=== PATIENT | female | born 1985 | race Caucasian/White ===

== ENCOUNTER 2017-07-10 06:54 | Observation (INO) | payer MEDICAID ==
[2017-07-10] MEDS ORDERED: Misoprostol 50 MCG (1/2 of 100 MCG) Tab VAG ONE ×2 (08:02→12:21)
[2017-07-10] MEDS ORDERED: Lactated Ringers 1,000 ML IV SCH (08:15)
[2017-07-10] MEDS ORDERED: Acetaminophen 325 MG Tab PO PRN (08:17)
[2017-07-10] MEDS ORDERED: Ondansetron 4 MG Tab.DIS PO PRN (08:17)
[2017-07-10] MEDS ORDERED: fentaNYL 100 MCG/2 ML SDV IVPUSH PRN (08:17)
[2017-07-10] MEDS ORDERED: Sodium Chloride 0.9% 10 ML Syringe FLUSH PRN (08:17)
--- NOTE | 2017-07-10 08:30 | PCM.LDHP ---
L&D History of Present Illness - General Date of Service: 07/10/17 (induction post dates) Admit Problem/Dx: Patient Status Order with Admit Dx/Problem 07/10/17 08:17 Patient Status [ADT] Routine Admission Diagnosis/Problem Admission Diagnosis/Problem and not yet delivered Source of Information: Patient History Limitations: Reports: No Limitations - History of Present Illness Introduction:: This 32 year old who is 41 1/7 weeks presents for induction of labor. Patient is a Suboxone patient. Labs: ABO A neg, Had rhogam at 29 weeks' HIV neg GBS neg Rubella immune - Related Data Allergies/Adverse Reactions: Allergies Allergy/AdvReac Type Severity Reaction Status Date / Time No Known Allergies Allergy Verified 06/30/13 10:25 Home Medications: Home Meds Albuterol [IJD: Albuterol HFA] 2 puff INH QID PRN 07/10/17 [History] Buprenorphine [Subutex] 12 mg SL BID 07/10/17 [History] Docosahexanoic Acid [ Dha] 200 mg PO BEDTIME 07/10/17 [History] Docusate Sodium [Colace] 100 mg PO BID 07/10/17 [History] OLANZapine [ZyPREXA] 10 mg PO BEDTIME 07/10/17 [History] traZODone HCl [Trazodone HCl] 50 mg PO BEDTIME 07/10/17 [History] Past Medical History HEENT History: Reports: Impaired Vision Respiratory History: Reports: Asthma [employer] History: Reports: : 1 Para: 0 LMP (Approximate): (LEROY 07/02/17) Neurological History: Reports: Seizure - Past Surgical History HEENT Surgical History: Reports: Oral Surgery GI Surgical History: Reports: Cholecystectomy Social & Family History - Family History Endocrine/Metabolic: Reports: Diabetes, type II Other Endocrine/Metabolic Family History: father - Tobacco Use Smoking Status *Q: Current Every Day Smoker Years of Tobacco use: 20 Packs/Tins Daily: 0.5 - Caffeine Use Caffeine Use: Reports: Coffee, Tea Other Caffeine Use: 4 per day - Alcohol Use Days Per Week of Alcohol Use: 0 - Recreational Drug Use Recreational Drug Use: Yes Drug Use in Last 12 Months: Yes Recreational Drug Type: Reports: Other (see below) Other Recreational Drug Type: methadone prepregancy. Now takes suboxone H&P Review of Systems - Review of Systems: Review Of Systems: See Below General: Reports: No Symptoms HEENT: Reports: No Symptoms Pulmonary: Reports: No Symptoms Cardiovascular: Reports: No Symptoms Gastrointestinal: Reports: No Symptoms Genitourinary: Reports: No Symptoms Musculoskeletal: Reports: No Symptoms Skin: Reports: No Symptoms Psychiatric: Reports: No Symptoms Neurological: Reports: No Symptoms Hematologic/Lymphatic: Reports: No Symptoms Immunologic: Reports: No Symptoms L&D Exam - Exam Exam: See Below - Vital Signs Weight: 220 lb - OB Specific Contraction Intensity: Mild Movement: Active Heart Tones: Present Heart Tones per Min: 140 Heart Rate (FHR) Variability: Minimal (0-5 bpm) Presentation: Vertex Estimated Weight: 5-6 pounds - Prince Score Prince Score Cervix Position: Midposition Prince Score Consistency: Soft Prince Score Effacement: 31-50% Prince Score Dilation: Closed Prince Score 's Station: -1 ,0 Prince Score Total: 6 - Exam General: Alert, Oriented HEENT: PERRLA, Conjunctiva Clear, EACs Clear, EOMI, Hearing Intact, Mucosa Moist & [place], Nares Patent, Normal Nasal Septum, Posterior Pharynx Clear, TMs Clear Neck: Supple, Trachea Midline Lungs: Clear to Auscultation, Normal Respiratory Effort Cardiovascular: Regular Rate, Regular Rhythm GI/Abdominal Exam: Normal Bowel Sounds, Soft, Non-Tender, No Organomegaly, No Distention, No Abnormal Bruit, No Mass, Pelvis Stable Rectal Exam: Normal Exam, Normal Rectal Tone Genitourinary: Normal external exam, Normal bimanual exam, Normal speculum exam Back Exam: Normal Inspection, Full Range of Motion Extremities: Normal Inspection, Normal Range of Motion, Non-Tender, No Pedal Edema, Normal Capillary Refill Skin: Warm, Dry, Intact Neurological: Cranial Nerves Intact, Reflexes Equal Bilateral Psychiatric: Alert, Normal Affect, Normal Mood - Patient Data Lab Results Last 24 hrs: Laboratory Results - last 24 hr 07/10/17 07/10/17 07/10/17 Range/Units 07:04 07:04 07:27 WBC 10.5 (4.5-11.0) K/uL RBC 4.35 (3.30-5.50) M/uL Hgb 13.7 (12.0-15.0) g/dL Hct 39.0 (36.0-48.0) % MCV 90 (80-98) fL MCH 32 H (27-31) pg MCHC 35 (32-36) % Plt Count 146 L (150-400) K/uL Neut % (Auto) 76 H (36-66) % Lymph % (Auto) 18 L (24-44) % Burke % (Auto) 5 (2-6) % Eos % (Auto) 1 L (2-4) % Baso % (Auto) 0 (0-1) % Urine Color Yellow Urine Appearance Cloudy Urine pH 5.0 (4.5-8.0) Ur Specific Kathleen 1.025 (1.008-1.030) Urine Protein Trace (NEGATIVE) mg/dL Urine Glucose (UA) 1000 H (NEGATIVE) mg/dL Urine Ketones 15 H (NEGATIVE) mg/dL Urine Occult Blood Negative (NEGATIVE) Urine Nitrite Negative (NEGATIVE) Urine Bilirubin Small (NEGATIVE) Urine Urobilinogen 1 (NORMAL) mg/dL Ur Leukocyte Esterase Negative (NEGATIVE) Urine RBC 0-5 (0-5) Urine WBC 5-10 H (0-5) Ur Epithelial Cells Many Amorphous Sediment Not seen Urine Bacteria Many Urine Mucus Moderate Urine Opiates Screen Negative (NEGATIVE) Ur Oxycodone Screen Negative (NEGATIVE) Urine Methadone Screen Negative (NEGATIVE) Ur Propoxyphene Screen Negative (NEGATIVE) Ur Barbiturates Screen Negative (NEGATIVE) Ur Tricyclics Screen Negative (NEGATIVE) Ur Phencyclidine Scrn Negative (NEGATIVE) Ur Amphetamine Screen Negative (NEGATIVE) U Methamphetamines Scrn Negative (NEGATIVE) Urine MDMA Screen Negative (NEGATIVE) U Benzodiazepines Scrn Negative (NEGATIVE) U Cocaine Metab Screen Negative (NEGATIVE) U Marijuana (THC) Screen Negative (NEGATIVE) Result Diagrams: 07/10/17 07:04 - Problem List (1) Amphetamine dependence, in remission SNOMED Code(s): 811212071 ICD Code: F15.21 - OTHER STIMULANT DEPENDENCE, IN REMISSION Status: Acute Current Visit: Yes (2) Elective induction of labor planned SNOMED Code(s): 323648794 ICD Code: PVP9468 - Status: Acute Current Visit: Yes (3) SNOMED Code(s): 65091237 ICD Code: Z34.90 - ENCNTR FOR SUPRVSN OF NORMAL , UNSP, UNSP TRIMESTER Status: Acute Current Visit: Yes Qualifiers: Weeks of gestation: 41 weeks Qualified Code(s): Z3A.41 - 41 weeks gestation of Problem List Initiated/Reviewed/Updated: Yes Orders Last 24hrs: Active Orders 24 hr Category Date Time Status Patient Status [ADT] Routine ADT 07/10/17 08:17 Ordered Antiembolic Devices [RC] .Routine Care 07/10/17 08:20 Ordered Communication Order [RC] ASDIRECTED Care 07/10/17 08:17 Ordered Heart Tones [RC] PER UNIT ROUTINE Care 07/10/17 08:17 Ordered Notify Provider Vital Signs [RC] PRN Care 07/10/17 08:17 Ordered Notify Provider [RC] PRN Care 07/10/17 08:17 Ordered Up ad Nabila [RC] ASDIRECTED Care 07/10/17 08:17 Ordered VTE/DVT Education [RC] Click to Edit Care 07/10/17 08:20 Ordered Vital Signs [RC] PER UNIT ROUTINE Care 07/10/17 08:17 Ordered Clear Liquid Diet [DIET] Diet 07/10/17 Lunch Ordered Acetaminophen [Tylenol] Med 07/10/17 08:17 Ordered 650 mg PO Q4H PRN Lactated Ringers [Ringers, Lactated] 1,000 ml Med 07/10/17 08:15 Active IV ASDIRECTED Ondansetron [Zofran ODT] Med 07/10/17 08:17 Ordered 4 mg PO Q4H PRN Oxytocin/Normal Saline [Pitocin in NS 20 Units/1,000 ML Med 07/10/17 08:22 Ordered ] 20 unit in 1,000 ml IV ONETIME Sodium Chloride 0.9% [Saline Flush] Med 07/10/17 08:17 Ordered 10 ml FLUSH ASDIRECTED PRN fentaNYL [Sublimaze] Med 07/10/17 08:17 Ordered 100 mcg IVPUSH Q1H PRN DVT/VTE Prophylaxis Reflex [OM.PC] Routine Oth 07/10/17 08:17 Ordered Saline Lock Insert [OM.PC] Routine Oth 07/10/17 08:17 Ordered Resuscitation Status Routine Resus Stat 07/10/17 08:17 Ordered Medication Orders Acetaminophen (Tylenol) 650 mg PO Q4H PRN PRN Reason: Pain (Mild 1-3) and fever Fentanyl (Sublimaze) 100 mcg IVPUSH Q1H PRN PRN Reason: Pain (moderate 4-6) Lactated Ringer's (Ringers, Lactated) 1,000 mls @ 75 mls/hr IV ASDIRECTED KATHLEEN Oxytocin/Sodium Chloride (Pitocin In Ns 20 Units/1,000 Ml) 20 unit in 1,000 mls @ 999 mls/hr IV ONETIME ONE PRN Reason: Protocol Stop: 07/10/17 09:22 Ondansetron HCl (Zofran Odt) 4 mg PO Q4H PRN PRN Reason: Nausea/Vomiting Sodium Chloride (Saline Flush) 10 ml FLUSH ASDIRECTED PRN PRN Reason: Keep Vein Open Assessment/Plan Comment:: 07/10/17 41 05/12 week gestation smoker Suboxone use induction for post dates Miso placed at 0800, vaginally 0/50/-1 no real contractions will reassess at [address] another dose of Miso.
[2017-07-10] MEDS ORDERED: Misoprostol 50 MCG (1/2 of 100 MCG) Tab ONE (12:20)
--- NOTE | 2017-07-10 12:36 | PCM.PNLD ---
Labor Progress Note - VS & Meds Vital Signs: Last Vital Signs Temp 98.7 F 07/10/17 07:03 Pulse 76 07/10/17 12:30 Resp 16 07/10/17 12:30 BP 126/81 07/10/17 12:30 Pulse Ox 94 L 07/10/17 08:25 Active Medications: Current Medications Acetaminophen (Tylenol) 650 mg PO Q4H PRN PRN Reason: Pain (Mild 1-3) and fever Fentanyl (Sublimaze) 100 mcg IVPUSH Q1H PRN PRN Reason: Pain (moderate 4-6) Lactated Ringer's (Ringers, Lactated) 1,000 mls @ 75 mls/hr IV ASDIRECTED KATHLEEN Last Admin: 07/10/17 08:53 Dose: 75 mls/hr Misoprostol (Cytotec) 50 mcg VAG ONETIME ONE Stop: 07/10/17 12:22 Ondansetron HCl (Zofran Odt) 4 mg PO Q4H PRN PRN Reason: Nausea/Vomiting Sodium Chloride (Saline Flush) 10 ml FLUSH ASDIRECTED PRN PRN Reason: Keep Vein Open Discontinued Medications Oxytocin/Sodium Chloride (Pitocin In Ns 20 Units/1,000 Ml) 20 unit in 1,000 mls @ 999 mls/hr IV ONETIME ONE PRN Reason: Protocol Stop: 07/10/17 09:22 Misoprostol (Cytotec) 50 mcg VAG ONETIME ONE Stop: 07/10/17 08:03 Last Admin: 07/10/17 08:05 Dose: 50 mcg Misoprostol (Cytotec) Confirm Administered Dose 50 mcg .ROUTE .STK-MED ONE Stop: 07/10/17 12:21 Last Admin: 07/10/17 12:27 Dose: Not Given - Uterine Contractions Uterine Monitoring Mode: External [place] Contraction Frequency (min): 1.5-3 Contraction Duration (sec): 50-70 Contraction Intensity: Mild Uterine Resting Tone: Soft - Monitoring Heart Rate (FHR) Baseline: 120 Heart Rate (FHR) Variability: Moderate (6-25 bmp) Accelerations: Present, 15x15 Decelerations: None Strip Review: Category I - Vaginal Exam Dilation (cm): 0 Effacement (Percent): 50 Station: -1 Cervical Position: Midposition Sterile Vaginal Exam Performed By: Zenobia Guillen Vaginal Exam Comment: cytotec 50 mcg vaginally - Labor Progress (Free Text) Labor Progress: no cervical change placed second dose of misoprostol will reassess at 1530 today.
[2017-07-10] MEDS ORDERED: BUPRENORPHINE 8 MG PO SCH (16:00)
--- NOTE | 2017-07-10 17:33 | PCM.PNLD ---
Labor Progress Note - VS & Meds Vital Signs: Last Vital Signs Temp 98.7 F 07/10/17 07:03 Pulse 81 07/10/17 13:25 Resp 16 07/10/17 12:25 BP 102/58 L 07/10/17 13:25 Pulse Ox 94 L 07/10/17 08:25 Active Medications: Current Medications Acetaminophen (Tylenol) 650 mg PO Q4H PRN PRN Reason: Pain (Mild 1-3) and fever Fentanyl (Sublimaze) 100 mcg IVPUSH Q1H PRN PRN Reason: Pain (moderate 4-6) Lactated Ringer's (Ringers, Lactated) 1,000 mls @ 75 mls/hr IV ASDIRECTED [facility] Last Admin: 07/10/17 08:53 Dose: 75 mls/hr Olanzapine (Zyprexa) 10 mg PO BEDTIME KATHLEEN Ondansetron HCl (Zofran Odt) 4 mg PO Q4H PRN PRN Reason: Nausea/Vomiting Buprenorphine Sl 8mg (TabPom) 0 each PO BID@0800,1600 [facility] Last Admin: 07/10/17 16:07 Dose: 1 each Sodium Chloride (Saline Flush) 10 ml FLUSH ASDIRECTED PRN PRN Reason: Keep Vein Open Trazodone HCl (Trazodone) 50 mg PO BEDTIME [facility] Discontinued Medications Oxytocin/Sodium Chloride (Pitocin In Ns 20 Units/1,000 Ml) 20 unit in 1,000 mls @ 999 mls/hr IV ONETIME ONE PRN Reason: Protocol Stop: 07/10/17 09:22 Misoprostol (Cytotec) 50 mcg VAG ONETIME ONE Stop: 07/10/17 08:03 Last Admin: 07/10/17 08:05 Dose: 50 mcg Misoprostol (Cytotec) Confirm Administered Dose 50 mcg .ROUTE .STK-MED ONE Stop: 07/10/17 12:21 Last Admin: 07/10/17 12:27 Dose: Not Given Misoprostol (Cytotec) 50 mcg VAG ONETIME ONE Stop: 07/10/17 12:22 Last Admin: 07/10/17 12:25 Dose: 50 mcg - Uterine Contractions Uterine Monitoring Mode: External [place] Contraction Frequency (min): 1.5-2.5 Contraction Duration (sec): 40-60 Contraction Intensity: Mild Uterine Resting Tone: Soft - Monitoring Heart Rate (FHR) Baseline: 120 Heart Rate (FHR) Variability: Moderate (6-25 bmp) Accelerations: Present, 15x15 Decelerations: None Strip Review: Category I - Vaginal Exam Dilation (cm): 0 Effacement (Percent): 60 Station: -1 Cervical Position: Midposition Sterile Vaginal Exam Performed By: Zenobia Guillen Vaginal Exam Comment: no change - Labor Progress (Free Text) Labor Progress: 07/10/17 No cervical change, contractions have spaced out. plan is to send her home to rest and sleep. To return tomorrow Am for pitocin induction.
[2017-07-10] MEDS ORDERED: OLANZapine 5 MG Tab PO SCH (21:00)
[2017-07-10] MEDS ORDERED: traZODone 50 MG Tab PO SCH (21:00)
== END 2017-07-10 17:53 | disposition home or self-care (01) ==
LOC: JP.OB 06:54
PROVIDERS: ADMIT Nurse Practitioner Family; ATTEND Nurse Practitioner Family
DX: O61.9 Failed induction of labor, unspecified (principal); O99.323 Drug use complicating pregnancy, third trimester; F15.21 Other stimulant dependence, in remission; O99.513 Diseases of the respiratory system complicating pregnancy, third trimester; J45.909 Unspecified asthma, uncomplicated; Z3A.41 41 weeks gestation of pregnancy; Z79.899 Other long term (current) drug therapy; Z90.49 Acquired absence of other specified parts of digestive tract; Z98.890 Other specified postprocedural states; F17.210 Nicotine dependence, cigarettes, uncomplicated
CPT/HCPCS: 36415; 80305; 81001; 85025; A9270; J7120; 99211

== ENCOUNTER 2017-07-11 00:19 | Inpatient (IN) | payer MEDICAID ==
[2017-07-11] MEDS ORDERED: Lactated Ringers 1,000 ML IV SCH ×2 (00:30→05:45)
[2017-07-11] MEDS ORDERED: Lactated Ringers 1,000 ML IV ONE ×3 (04:30→05:43)
[2017-07-11] MEDS ORDERED: Sodium Chloride 0.9% 10 ML Syringe FLUSH PRN (05:37)
[2017-07-11] MEDS ORDERED: Acetaminophen 325 MG Tab PO PRN ×2 (05:37→15:39)
[2017-07-11] MEDS ORDERED: Ondansetron 4 MG Tab.DIS PO PRN (05:37)
[2017-07-11] MEDS ORDERED: ePHEDrine 50 MG/ML SDV IVPUSH ONE (05:43)
--- NOTE | 2017-07-11 05:55 | PCM.LDHP ---
L&D History of Present Illness - General Date of Service: 07/11/17 (SROM induction) Admit Problem/Dx: Patient Status Order with Admit Dx/Problem 07/11/17 05:37 Patient Status [ADT] Routine Admission Diagnosis/Problem Admission Diagnosis/Problem and not yet delivered Source of Information: Patient History Limitations: Reports: No Limitations - History of Present Illness Introduction:: 07/11/17 This 32 year old G1 who is 41 2/7 weeks gestation presents with SROM at home last night at 2230. Presented to hospital at 2330. Amniosure positive. Contractions very mild and every 4-7 minutes. FHT baseline 130 with minimal variability. Bolus LR started and ran all night. cervix closed/50/-1 at midnight and FT/50/- at 0500. Patient is a suboxone user, smoker and drinks mountain dew. Poor self care. transferred care here from [facility] to be with her mother for support. FOB not involved. LEROY 07/02/17 ABO A neg and had Rhogam at 29 weeks GBS neg HIV neg HGB 13.7 and plt 146 yesterday am being repeat this morning Timing/Duration: Reports: minutes: (4-7) Location, : Reports: Abdomen Severity: Mild Improves with: Reports: None Worsens with: Reports: None Associated Symptoms: Reports: vaginal fluid - Related Data Allergies/Adverse Reactions: Allergies Allergy/AdvReac Type Severity Reaction Status Date / Time No Known Allergies Allergy Verified 06/30/13 10:25 Home Medications: Home Meds Albuterol [IJD: Albuterol HFA] 2 puff INH QID PRN 07/10/17 [History] Buprenorphine [Subutex] 12 mg SL BID 07/10/17 [History] Docosahexanoic Acid [ Dha] 200 mg PO BEDTIME 07/10/17 [History] Docusate Sodium [Colace] 100 mg PO BID 07/10/17 [History] OLANZapine [ZyPREXA] 10 mg PO BEDTIME 07/10/17 [History] traZODone HCl [Trazodone HCl] 50 mg PO BEDTIME 07/10/17 [History] Past Medical History HEENT History: Reports: Impaired Vision Respiratory History: Reports: Asthma [employer] History: Reports: : 1 Para: 0 LMP (Approximate): ([place] 07/02/17) Neurological History: Reports: Seizure Psychiatric History: Reports: Anxiety, Suicidal Ideation, Other (See Below) 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 - Infectious Disease History Infectious Disease History: Reports: Chicken Pox - Past Surgical History HEENT Surgical History: Reports: Oral Surgery Other HEENT Surgeries/Procedures: wisdom teeth romoved Respiratory Surgical History: Reports: None GI Surgical History: Reports: Cholecystectomy Neurological Surgical History: Reports: None Social & Family History - Family History Family Medical History: Noncontributory Endocrine/Metabolic: Reports: Diabetes, type II Other Endocrine/Metabolic Family History: father - Tobacco Use Smoking Status *Q: Current Every Day Smoker Years of Tobacco use: 20 Packs/Tins Daily: 0.5 Used Tobacco, but Quit: No Second Hand Smoke Exposure: No - Caffeine Use Caffeine Use: Reports: Coffee, Tea Other Caffeine Use: 4 per day - Alcohol Use Days Per Week of Alcohol Use: 0 - Recreational Drug Use Recreational Drug Use: Yes Drug Use in Last 12 Months: Yes Recreational Drug Type: Reports: Other (see below) Other Recreational Drug Type: methadone prepregancy. Now takes suboxone H&P Review of Systems - Review of Systems: Review Of Systems: See Below General: Reports: No Symptoms HEENT: Reports: No Symptoms Pulmonary: Reports: No Symptoms Cardiovascular: Reports: No Symptoms Gastrointestinal: Reports: No Symptoms Genitourinary: Reports: No Symptoms Musculoskeletal: Reports: No Symptoms Skin: Reports: No Symptoms Psychiatric: Reports: No Symptoms Neurological: Reports: No Symptoms Hematologic/Lymphatic: Reports: No Symptoms Immunologic: Reports: No Symptoms L&D Exam - Exam Exam: See Below - Vital Signs Vital Signs: Last Vital Signs Temp 98.8 F 07/11/17 00:25 Pulse 85 07/11/17 00:25 Resp 18 07/11/17 00:25 BP 128/86 07/11/17 00:25 Pulse Ox Weight: 221 lb - OB Specific Contraction Duration (sec): 80 Contraction Frequency (min): 5 Contraction Intensity: Mild to Moderate Heart Rate (FHR) Variability: Minimal (0-5 bpm) Presentation: Vertex Estimated Weight: 5-6 pounds - Prince Score Prince Score Cervix Position: Midposition Prince Score Consistency: Soft Prince Score Effacement: 31-50% Prince Score Dilation: Closed Prince Score 's Station: -1 ,0 Prince Score Total: 6 - Exam General: Alert, Oriented HEENT: PERRLA, Conjunctiva Clear, Hearing Intact, Mucosa Moist & [place], Pupils Equal Neck: Supple Lungs: Clear to Auscultation, Normal Respiratory Effort Cardiovascular: Regular Rate, Regular Rhythm GI/Abdominal Exam: Soft Rectal Exam: Normal Rectal Tone Genitourinary: Cervical fluid, Enlarged uterus Back Exam: Normal Inspection, Full Range of Motion Extremities: Normal Inspection, Normal Range of Motion, Non-Tender, No Pedal Edema, Normal Capillary Refill Skin: Warm, Dry, Intact Neurological: Cranial Nerves Intact, Reflexes Equal Bilateral Psychiatric: Alert, Normal Affect, Normal Mood - Patient Data Lab Results Last 24 hrs: Laboratory Results - last 24 hr 07/11/17 Range/Units 00:53 Membrane Rupture Positive H (NEGATIVE) - Problem List (1) SROM (spontaneous rupture of membranes) SNOMED Code(s): 852909658 ICD Code: IAI4743 - Status: Acute Current Visit: Yes (2) Amphetamine dependence, in remission SNOMED Code(s): 844587096 ICD Code: F15.21 - OTHER STIMULANT DEPENDENCE, IN REMISSION Status: Acute Current Visit: Yes (3) SNOMED Code(s): 27596498 ICD Code: Z34.90 - ENCNTR FOR SUPRVSN OF NORMAL , UNSP, UNSP TRIMESTER Status: Acute Current Visit: Yes Qualifiers: Weeks of gestation: 41 weeks Qualified Code(s): Z3A.41 - 41 weeks gestation of Problem List Initiated/Reviewed/Updated: Yes Orders Last 24hrs: Active Orders 24 hr Category Date Time Status Patient Status [ADT] Routine ADT 07/11/17 05:37 Ordered Antiembolic Devices [RC] .Routine Care 07/11/17 05:41 Ordered Communication Order [RC] ASDIRECTED Care 07/11/17 05:37 Ordered Heart Tones [RC] PER UNIT ROUTINE Care 07/11/17 05:37 Ordered [place] Catheter Insertion [Insert Urinary Catheter] [OM. Care 07/11/17 05:45 Ordered PC] Q24H Local Anesthetic Infusion Pump [RC] ASDIRECTED Care 07/11/17 05:43 Ordered Local Anesthetic Infusion Pump [RC] ASDIRECTED Care 07/11/17 05:43 Ordered Notify Provider Vital Signs [RC] PRN Care 07/11/17 05:37 Ordered Notify Provider [RC] PRN Care 07/11/17 05:37 Ordered OB Check [OM.PC] Click to Edit Care 07/11/17 00:25 Ordered PCEA Epidural [RC] ASDIRECTED Care 07/11/17 05:43 Ordered PCEA Epidural [RC] ASDIRECTED Care 07/11/17 05:43 Ordered Urinary Catheter Assessment [RC] ASDIRECTED Care 07/11/17 05:45 Ordered VTE/DVT Education [RC] Click to Edit Care 07/11/17 05:41 Ordered Vital Signs [RC] PER UNIT ROUTINE Care 07/11/17 05:37 Ordered CBC W/O DIFF,HEMOGRAM [HEME] Routine Lab 07/11/17 05:43 Ordered Acetaminophen [Tylenol] Med 07/11/17 05:37 Ordered 650 mg PO Q4H PRN Lactated Ringers [Ringers, Lactated] 1,000 ml Med 07/11/17 05:43 Ordered IV .BOLUS Lactated Ringers [Ringers, Lactated] 1,000 ml Med 07/11/17 05:43 Ordered IV .BOLUS Lactated Ringers [Ringers, Lactated] 1,000 ml Med 07/11/17 00:30 Active IV ASDIRECTED Lactated Ringers [Ringers, Lactated] 1,000 ml Med 07/11/17 05:45 Active IV ASDIRECTED Ondansetron [Zofran ODT] Med 07/11/17 05:37 Ordered 4 mg PO Q4H PRN Oxytocin/Normal Saline [Pitocin in NS 20 Units/1,000 ML Med 07/11/17 05:00 Active ] 20 unit in 1,000 ml IV TITRATE Sodium Chloride 0.9% [Saline Flush] Med 07/11/17 05:37 Ordered 10 ml FLUSH ASDIRECTED PRN ePHEDrine [ePHEDrine Sulfate] Med 07/11/17 05:43 Once 5 mg IVPUSH ONETIME ONE DVT/VTE Prophylaxis Reflex [OM.PC] Routine Oth 07/11/17 05:37 Ordered Epidural Catheter Management [OM.PC] Urgent Oth 07/11/17 05:43 Ordered Saline Lock Insert [OM.PC] Routine Oth 07/11/17 05:37 Ordered Resuscitation Status Routine Resus Stat 07/11/17 05:37 Ordered Medication Orders Acetaminophen (Tylenol) 650 mg PO Q4H PRN PRN Reason: Pain (Mild 1-3) and fever Ephedrine Sulfate (Ephedrine Sulfate) 5 mg IVPUSH ONETIME ONE Stop: 07/11/17 05:44 Lactated Ringer's (Ringers, Lactated) 1,000 mls @ 75 mls/hr IV ASDIRECTED KATHLEEN Lactated Ringer's (Ringers, Lactated) 1,000 mls @ 75 mls/hr IV ASDIRECTED KATHLEEN Oxytocin/Sodium Chloride (Pitocin In Ns 20 Units/1,000 Ml) 20 unit in 1,000 mls @ 6 mls/hr IV TITRATE KATHLEEN; 2 MUNITS/MIN PRN Reason: Protocol Lactated Ringer's (Ringers, Lactated) 1,000 mls @ 999 mls/hr IV .BOLUS ONE Stop: 07/11/17 06:43 Lactated Ringer's (Ringers, Lactated) 1,000 mls @ 999 mls/hr IV .BOLUS ONE Stop: 07/11/17 06:43 Ondansetron HCl (Zofran Odt) 4 mg PO Q4H PRN PRN Reason: Nausea/Vomiting Sodium Chloride (Saline Flush) 10 ml FLUSH ASDIRECTED PRN PRN Reason: Keep Vein Open Assessment/Plan Comment:: 07/11/17 41 2/7 gestation, SROM at home after cervical ripening yesterday Pitocin induction today Suboxone use smoker ABO A - will need work up after delivery for Rhogam GBS neg HIV neg Plan epidural pitocin pray for vaginal delivery I have serious concerns about the babies ability to tolerate induction as placenta insufficient is already present At the time of delivery the baby may need support
[2017-07-11] MEDS ORDERED: Ropivacaine 200 ML EPIDUR SCH (06:00)
[2017-07-11] MEDS ORDERED: Ropivacaine 100 ML ONE (06:46)
[2017-07-11] MEDS ORDERED: Naloxone 0.4 MG/ML SDV IVPUSH PRN (08:08)
[2017-07-11] MEDS ORDERED: diphenhydrAMINE 50 MG/ML SDV IVPUSH PRN (08:09)
[2017-07-11] MEDS ORDERED: ePHEDrine 50 MG/ML SDV IV PRN (08:09)
[2017-07-11] MEDS: BUPRENORPHINE 8 MG PO SCH (12:30)
[2017-07-11] MEDS ORDERED: Lactated Ringers 500 ML IV ONE (13:22)
--- NOTE | 2017-07-11 13:35 | ANES ---
DATE OF SERVICE: 07/11/2017 INDICATIONS: Mirian is a 32-year-old female patient of [facility], and I was requested to consult patient for a labor epidural, for a prolonged stage II labor. EDGAR number was [id number]. Upon arrival, I found the 32-year-old female patient in the room. I discussed with her, her medication history as well as her medical history. I reviewed her lab work and found no contraindication to the labor epidural. On reviewing, it does describe prior substance use, unknown when the last use has been. I explained to the patient the procedure as well as risks and benefits of the procedure, and consent was received. DESCRIPTION OF PROCEDURE: I had her seated at the edge of the bed. I located the L3-L4. Betadine prep x3 to lumbar region and sterile drape was placed. The 1% lidocaine skin wheal as well as deep at the L3-L4 region, a 17-gauge Tuohy was placed to loss of resistance with ease. Negative CSF, negative heme, and negative paresthesia. I placed the catheter at 14 cm. The needle was removed. Test dose through the catheter of 1.5% lidocaine with 1:200,000 epinephrine and 3 mL were used, and negative sequelae. She tolerated the procedure quite well. Please refer to nurse's notes for vital signs and neuro status, which were unchanged and within normal limits. I discussed with the patient again the onset as well as gravity affecting the epidural. She voiced understanding. Again, she tolerated the procedure quite well. I reported off to the nurse, the dose in obvious tolerance and appreciate the consult. Jose Shah CRNA /[id number]
[2017-07-11] MEDS ORDERED: Mineral Oil 10 ML Bottle ONE (14:39)
[2017-07-11] MEDS ORDERED: Witch Hazel Medicated Pads 100/Jar TOP PRN (15:39)
[2017-07-11] MEDS ORDERED: Docusate Sodium 100 MG Cap PO PRN (15:39)
[2017-07-11] MEDS ORDERED: Lanolin 100% Cream 40 GM Tube TOP PRN (15:39)
[2017-07-11] MEDS ORDERED: Benzocaine 20% Top Spray 56 GM Bottle TOP PRN (15:39)
[2017-07-11] MEDS ORDERED: Hydrocortisone 2.5% Crm 30 GM Tube TOP PRN (15:39)
--- NOTE | 2017-07-11 15:51 | PCM.DEL ---
L & D Note - General Info Date of Service: 07/11/17 Mother's Due Date: 06/30/17 (41 2/7) - Delivery Note Labor: Augmented by Oxytocin Cervical Ripening Method: Misoprostil, Oxytocin Delivery Outcome: Livebirth Delivery Method: Spontaneous Vaginal Delivery-Single Delivery Mode: Spontaneous Presentation: Left Occiput Anterior (JOSÉ) Nuchal Cord: Present Prep: Other Anesthesia Type: Epidural Amniotic Fluid Description: Clear Episiotomy Type: None Laceration: 2nd Degree Suture type: Vicryl Suture size: 3-0 Placenta: Intact, Spontaneous Cord: 3 Vessels Estimated Blood Loss: 200 Resuscitation Needed: No : Stimulated, Warmed Score 1 min: 8 Score 5 min: 9 Second Stage Interventions: Reports: Laboring Down, Pushing Effectively, Pushing , McRobert's Position, Pushing, Squat Bar Pulling on Device Induction Criteria - Induction Gestational Age >/= 39 wks: Yes Estimated Pelvis: Reports: Adequate Reassuring Monitoring Strip: No Absence of Tachy Systole: Yes - Augmentation Estimated Pelvis: Reports: Adequate Weight Estimated:: Reports: LGA Reassuring Monitoring Strip: No - General Info Date of Service: 07/11/17 Functional Status: Reports: Pain Controlled - Review of Systems General: Reports: No Symptoms HEENT: Reports: No Symptoms Pulmonary: Reports: No Symptoms Cardiovascular: Reports: No Symptoms Gastrointestinal: Reports: Nausea, Vomiting Genitourinary: Reports: No Symptoms - Patient Data Vitals - Most Recent: Last Vital Signs Temp 98.8 F 07/11/17 00:25 Pulse 87 07/11/17 09:15 Resp 18 07/11/17 06:45 BP 98/60 07/11/17 09:15 Pulse Ox 97 07/11/17 06:45 Weight - Most Recent: 100.244 kg I&O - Last 24 Hours: Intake & Output 07/11/17 07/11/17 07/11/17 06:59 14:59 22:59 Output Total 100 Balance -100 Lab Results Last 24 Hours: Laboratory Results - last 24 hr 07/11/17 07/11/17 Range/Units 00:53 05:43 WBC 13.4 H (4.5-11.0) K/uL RBC 4.32 (3.30-5.50) M/uL Hgb 13.7 (12.0-15.0) g/dL Hct 38.4 (36.0-48.0) % MCV 89 (80-98) fL MCH 32 H (27-31) pg MCHC 36 (32-36) % Plt Count 158 (150-400) K/uL Membrane Rupture Positive H (NEGATIVE) Med Orders - Current: Current Medications Acetaminophen (Tylenol) 650 mg PO Q4H PRN PRN Reason: Pain (Mild 1-3) and fever Acetaminophen (Tylenol) 650 mg PO Q4H PRN PRN Reason: mild pain or fever Benzocaine (Cpvh-I-Nsdezam 20% [place]) 0 gm TOP Q4H PRN PRN Reason: Perineal Comfort Measure Diphenhydramine HCl (Benadryl) 25 mg IVPUSH Q6H PRN PRN Reason: ITCHING Docusate Sodium (Colace) 100 mg PO BID PRN PRN Reason: Constipation Emollient Ointment (Lansinoh Hpa) 1 gm TOP ASDIRECTED PRN PRN Reason: Sore Nipples Ephedrine Sulfate (Ephedrine Sulfate) 5 - 10 mg IV ASDIRECTED PRN PRN Reason: Systolic BP less than 100 Hydrocortisone (Proctozone-Hc 2.5% Crm) 1 gm TOP ASDIRECTED PRN PRN Reason: Itching Lactated Ringer's (Ringers, Lactated) 1,000 mls @ 75 mls/hr IV ASDIRECTED KATHLEEN Last Admin: 07/11/17 05:00 Dose: 75 mls/hr Oxytocin/Sodium Chloride (Pitocin In Ns 20 Units/1,000 Ml) 20 unit in 1,000 mls @ 6 mls/hr IV TITRATE KATHLEEN; 2 MUNITS/MIN PRN Reason: Protocol Last Titration: 07/11/17 11:02 Dose: 6 munits/min, 18 mls/hr Ropivacaine (Naropin 0.2%) 200 mls @ 0 mls/hr EPIDUR ASDIRECTED KATHLEEN; Titrate PRN Reason: Protocol Ibuprofen (Motrin) 800 mg PO Q6H PRN PRN Reason: mild pain or fever Naloxone HCl (Narcan) 0.1 mg IVPUSH Q5M PRN PRN Reason: IF RESP RATE LESS THAN 6 Olanzapine (Zyprexa) 10 mg PO BEDTIME KATHLEEN Ondansetron HCl (Zofran Odt) 4 mg PO Q4H PRN PRN Reason: Nausea/Vomiting Last Admin: 07/11/17 08:39 Dose: 4 mg Buprenorphine Sl 8mg (TabPom) 0 each PO BID@0800,1600 [facility] Prenat Multivit/Rig Manager/Iron/Folic Ac ( Plus Iron) 1 each PO DAILY [facility] Sodium Chloride (Saline Flush) 10 ml FLUSH ASDIRECTED PRN PRN Reason: Keep Vein Open Trazodone HCl (Trazodone) 50 mg PO BEDTIME [facility] Howard Lan (Tucks) 1 pad TOP ASDIRECTED PRN PRN Reason: Hemorrhoids Discontinued Medications Ephedrine Sulfate (Ephedrine Sulfate) 5 mg IVPUSH ONETIME ONE Stop: 07/11/17 05:44 Last Admin: 07/11/17 11:10 Dose: Not Given Lactated Ringer's (Ringers, Lactated) 1,000 mls @ 999 mls/hr IV BOLUS ONE Stop: 07/11/17 05:30 Last Admin: 07/11/17 09:37 Dose: Not Given Lactated Ringer's (Ringers, Lactated) 1,000 mls @ 75 mls/hr IV ASDIRECTED [facility] Last Admin: 07/11/17 01:10 Dose: 75 mls/hr Lactated Ringer's (Ringers, Lactated) 1,000 mls @ 999 mls/hr IV .BOLUS ONE Stop: 07/11/17 06:43 Last Admin: 07/11/17 04:30 Dose: 999 mls/hr Lactated Ringer's (Ringers, Lactated) 1,000 mls @ 999 mls/hr IV .BOLUS ONE Stop: 07/11/17 06:43 Last Admin: 07/11/17 09:38 Dose: Not Given Ropivacaine (Naropin 0.2%) Confirm Administered Dose 100 mls @ as directed .ROUTE .STK-MED ONE Stop: 07/11/17 06:47 Lactated Ringer's (Ringers, Lactated) 500 mls @ 999 mls/hr IV BOLUS ONE Stop: 07/11/17 13:52 Mineral Oil (Muri-Lube) Confirm Administered Dose 10 ml .ROUTE .STK-MED ONE Stop: 07/11/17 14:40 - Exam General: Alert, Oriented HEENT: Pupils Equal Neck: Supple Lungs: Normal Respiratory Effort Cardiovascular: Regular Rate GI/Abdominal Exam: Soft, Non-Tender (Female) Exam: Normal External Exam Extremities: Normal Inspection - Problem List & Annotations (1) Status post vaginal delivery SNOMED Code(s): 916600943, 446806550 Code(s): WXS2341 - Status: Acute Priority: High Current Visit: Yes (2) Suboxone maintenance treatment complicating , antepartum SNOMED Code(s): 236252390 Code(s): O99.320 - DRUG USE COMPLICATING , UNSPECIFIED TRIMESTER; F11.20 - OPIOID DEPENDENCE, UNCOMPLICATED Status: Chronic Priority: High Current Visit: Yes (3) Asthma SNOMED Code(s): 127627729 Code(s): J45.909 - UNSPECIFIED ASTHMA, UNCOMPLICATED Status: Chronic Priority: Medium Current Visit: Yes Qualifiers: Asthma severity: mild Asthma persistence: intermittent (4) Schizophrenia SNOMED Code(s): 26834786 Code(s): F20.9 - SCHIZOPHRENIA, UNSPECIFIED Status: Chronic Current Visit : Yes Qualifiers: Schizophrenia type: unspecified Qualified Code(s): F20.9 - Schizophrenia, unspecified - Problem List Review Problem List Initiated/Reviewed/Updated: Yes - My Orders Last 24 Hours: My Active Orders 07/11/17 15:39 Patient Status [ADT] Routine Cooling Warming Measures [RC] ASDIRECTED May Shower [RC] ASDIRECTED Up ad Nabila [RC] ASDIRECTED Vital Signs [RC] PFP Consult to Electricians Top Helper [CONS] Routine RHIG WORKUP, [BBK] Stat Acetaminophen [Tylenol] 650 mg PO Q4H PRN Benzocaine [Dacg-D-Jcumxsd 20% [place]] See Dose Instructions TOP Q4H PRN Docusate Sodium [Colace] 100 mg PO BID PRN Hydrocortisone [Proctozone-HC 2.5% Crm] 1 gm TOP ASDIRECTED PRN Ibuprofen [Motrin] 800 mg PO Q6H PRN Lanolin [Lansinoh HPA] 1 gm TOP ASDIRECTED PRN Witch Edyta [Tucks] 1 pad TOP ASDIRECTED PRN Assess Lochia [WOMSER] Per Unit Routine Assess Uterine Involution [WOMSER] Per Unit Routine Breast Pump [WOMSER] Per Unit Routine 07/11/17 15:41 Ice Therapy [OM.PC] Per Unit Routine Perineal Care [OM.PC] Per Unit Routine Sitz Bath [OM.PC] Per Unit Routine 07/11/17 15:42 Peripheral IV Discontinue [OM.PC] Routine 07/11/17 21:00 OLANZapine [ZyPREXA] 10 mg PO BEDTIME traZODone 50 mg PO BEDTIME 07/11/17 Dinner Regular Diet [DIET] 07/12/17 05:11 CBC WITH AUTO DIFF [HEME] AM 07/12/17 09:00 Vit with Ca/FA/Iron [ Plus Iron] 1 each PO DAILY - Plan Plan:: Assessment 32-year-old female 1 para 1 status post spontaneous vaginal delivery at 41-2/7 weeks intrauterine gestation Suboxone maintenance therapy Asthma mild intermittent Schizoaffective disorder Plan Routine care, plan for pain control of Tylenol Motrin as needed like to try and avoid narcotics as much as possible 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
[2017-07-11] MEDS ORDERED: Albuterol 8 GM Inhaler INH PRN (15:54)
[2017-07-11] MEDS ORDERED: Mineral Oil 10 ML Bottle TOP ONE (16:50)
[2017-07-11] MEDS: Ibuprofen 800 MG Tab PO PRN (17:09)
[2017-07-11] MEDS ORDERED: BUPRENORPHINE SL SCH (21:00)
[2017-07-11] MEDS ORDERED: DOCOSAHEXANOIC ACID 200 MG PO SCH (21:00)
[2017-07-11] MEDS ORDERED: OLANZapine 5 MG Tab PO SCH (21:00)
[2017-07-11] MEDS ORDERED: traZODone 50 MG Tab PO SCH (21:00)
[2017-07-11] MEDS: traZODone 50 MG Tab PO SCH (21:18)
[2017-07-11] MEDS: Prenatal Multivitamin with Calcium/Folic Acid/Iron Tab PO SCH (21:18)
[2017-07-11] MEDS: Docusate Sodium 100 MG Cap PO SCH (21:18)
[2017-07-11] MEDS: OLANZapine 5 MG Tab PO SCH (21:18)
[2017-07-12] MEDS: Ibuprofen 800 MG Tab PO PRN (03:24)
[2017-07-12] MEDS ORDERED: Ibuprofen 200 MG Tab, 24 Tab Bulk Bottle PO PRN (08:24)
[2017-07-12] MEDS ORDERED: Acetaminophen 325 MG Tab, 50 Tab Bulk Bottle PO PRN (08:43)
[2017-07-12] MEDS: BUPRENORPHINE 8 MG PO SCH ×2 (08:49→15:18)
[2017-07-12] MEDS: Docusate Sodium 100 MG Cap PO SCH ×2 (08:50→21:13)
[2017-07-12] MEDS ORDERED: Prenatal Multivitamin with Calcium/Folic Acid/Iron Tab PO SCH (09:00)
--- NOTE | 2017-07-12 09:36 | PCM.PN ---
- General Info Date of Service: 07/12/17 Admission Dx/Problem (Free Text): Patient Status Order with Admit Dx/Problem 07/11/17 05:37 Patient Status [ADT] Routine Admission Diagnosis/Problem Admission Diagnosis/Problem and not yet delivered Subjective Update: 32-year-old female status post spontaneous vaginal delivery at 42-2/7 weeks in intrauterine gestation, pain is controlled decreased lochia, some difficulty with breast-feeding ambulating tolerating diet Functional Status: Reports: Pain Controlled - Review of Systems General: Reports: No Symptoms Pulmonary: Reports: No Symptoms Cardiovascular: Reports: No Symptoms Gastrointestinal: Reports: No Symptoms Genitourinary: Reports: No Symptoms - Patient Data Vitals - Most Recent: Last Vital Signs Temp 98.4 F 07/12/17 03:00 Pulse 80 07/12/17 03:00 Resp 16 07/12/17 03:00 BP 112/70 07/12/17 03:00 Pulse Ox 94 L 07/12/17 03:00 Weight - Most Recent: 100.244 kg I&O - Last 24 Hours: Intake & Output 07/11/17 07/12/17 07/12/17 22:59 06:59 14:59 Intake Total 3914 Balance 3914 Lab Results Last 24 Hours: Laboratory Results - last 24 hr 07/11/17 07/12/17 Range/Units 15:39 05:31 WBC 16.0 H (4.5-11.0) K/uL RBC 3.60 (3.30-5.50) M/uL Hgb 11.7 L D (12.0-15.0) g/dL Hct 32.9 L (36.0-48.0) % MCV 91 (80-98) fL MCH 33 H (27-31) pg MCHC 36 (32-36) % Plt Count 161 (150-400) K/uL Neut % (Auto) 77 H (36-66) % Lymph % (Auto) 16 L (24-44) % [place] % (Auto) 6 (2-6) % Eos % (Auto) 1 L (2-4) % Baso % (Auto) 0 (0-1) % Blood Type A NEGATIVE Gel Antibody Screen Negative Rhogam Indicated Yes, baby rh pos Med Orders - Current: Current Medications Acetaminophen (Tylenol Bulk Bottle) 325 - 650 mg PO Q4H PRN PRN Reason: Pain Last Admin: 07/12/17 08:50 Dose: 2 tab Albuterol (Ventolin Hfa) 0 gm INH QID PRN PRN Reason: Shortness of Breath Benzocaine (Iqqb-L-Pyumsjn 20% [place]) 0 gm TOP Q4H PRN PRN Reason: Perineal Comfort Measure Last Admin: 07/11/17 18:22 Dose: 1 applic Docusate Sodium (Colace) 100 mg PO BID PRN PRN Reason: Constipation Docusate Sodium (Colace) 100 mg PO BID [facility] Last Admin: 07/12/17 08:50 Dose: 100 mg Emollient Ointment (Lansinoh Hpa) 1 gm TOP ASDIRECTED PRN PRN Reason: Sore Nipples Last Admin: 07/11/17 18:23 Dose: 1 applic Hydrocortisone (Proctozone-Hc 2.5% Crm) 0 gm TOP ASDIRECTED PRN PRN Reason: Itching Lactated Ringer's (Ringers, Lactated) 1,000 mls @ 75 mls/hr IV ASDIRECTED [facility] Last Admin: 07/11/17 05:00 Dose: 75 mls/hr Ibuprofen (Motrin Bulk Bottle) 200 - 600 mg PO Q6H PRN PRN Reason: Pain Olanzapine (Zyprexa) 10 mg PO BEDTIME [facility] Last Admin: 07/11/17 21:18 Dose: 10 mg Ondansetron HCl (Zofran Odt) 4 mg PO Q4H PRN PRN Reason: Nausea/Vomiting Last Admin: 07/11/17 08:39 Dose: 4 mg Buprenorphine Sl 8mg (TabPom) 0 each PO BID@0800,1600 [facility] Last Admin: 07/12/17 08:49 Dose: 1 each Prenat Multivit/[place]/Iron/Folic Ac ( Plus Iron) 1 each PO BEDTIME [facility] Last Admin: 07/11/17 21:18 Dose: 1 each Sodium Chloride (Saline Flush) 10 ml FLUSH ASDIRECTED PRN PRN Reason: Keep Vein Open Trazodone HCl (Trazodone) 50 mg PO BEDTIME [facility] Last Admin: 07/11/17 21:18 Dose: 50 mg Witch Edyta (Tucks) 1 pad TOP ASDIRECTED PRN PRN Reason: Hemorrhoids Last Admin: 07/11/17 18:22 Dose: 1 pad Discontinued Medications Diphenhydramine HCl (Benadryl) 25 mg IVPUSH Q6H PRN PRN Reason: ITCHING Ephedrine Sulfate (Ephedrine Sulfate) 5 mg IVPUSH ONETIME ONE Stop: 07/11/17 05:44 Last Admin: 07/11/17 11:10 Dose: Not Given Ephedrine Sulfate (Ephedrine Sulfate) 5 - 10 mg IV ASDIRECTED PRN PRN Reason: Systolic BP less than 100 Lactated Ringer's (Ringers, Lactated) 1,000 mls @ 999 mls/hr IV BOLUS ONE Stop: 07/11/17 05:30 Last Admin: 07/11/17 09:37 Dose: Not Given Lactated Ringer's (Ringers, Lactated) 1,000 mls @ 75 mls/hr IV ASDIRECTED KATHLEEN Last Admin: 07/11/17 01:10 Dose: 75 mls/hr Oxytocin/Sodium Chloride (Pitocin In Ns 20 Units/1,000 Ml) 20 unit in 1,000 mls @ 6 mls/hr IV TITRATE KATHLEEN; 2 MUNITS/MIN PRN Reason: Protocol Last Titration: 07/11/17 17:40 Dose: 125 mls/hr Lactated Ringer's (Ringers, Lactated) 1,000 mls @ 999 mls/hr IV .BOLUS ONE Stop: 07/11/17 06:43 Last Admin: 07/11/17 04:30 Dose: 999 mls/hr Lactated Ringer's (Ringers, Lactated) 1,000 mls @ 999 mls/hr IV .BOLUS ONE Stop: 07/11/17 06:43 Last Admin: 07/11/17 09:38 Dose: Not Given Ropivacaine (Naropin 0.2%) Confirm Administered Dose 100 mls @ as directed .ROUTE .STK-MED ONE Stop: 07/11/17 06:47 Ropivacaine (Naropin 0.2%) 200 mls @ 0 mls/hr EPIDUR ASDIRECTED KATHLEEN; Titrate PRN Reason: Protocol Lactated Ringer's (Ringers, Lactated) 500 mls @ 999 mls/hr IV BOLUS ONE Stop: 07/11/17 13:52 Last Admin: 07/11/17 13:25 Dose: 999 mls/hr Ibuprofen (Motrin) 800 mg PO Q6H PRN PRN Reason: mild pain or fever Last Admin: 07/12/17 03:24 Dose: 800 mg Mineral Oil (Muri-Lube) Confirm Administered Dose 10 ml .ROUTE .STK-MED ONE Stop: 07/11/17 14:40 Last Admin: 07/11/17 17:10 Dose: Not Given Mineral Oil (Muri-Lube) 15 ml TOP ONETIME ONE Stop: 07/11/17 16:51 Last Admin: 07/11/17 17:10 Dose: 10 ml Naloxone HCl (Narcan) 0.1 mg IVPUSH Q5M PRN PRN Reason: IF RESP RATE LESS THAN 6 Prenat Multivit/[place]/Iron/Folic Ac ( Plus Iron) 1 each PO DAILY KATHLEEN - Exam General: Alert, Oriented Neck: Supple Lungs: Normal Respiratory Effort, Wheezing Cardiovascular: Regular Rate, Regular Rhythm GI/Abdominal Exam: Other (Firm fundus 2 cm below the umbilicus) Extremities: Pedal Edema - Problem List & Annotations (1) Status post vaginal delivery SNOMED Code(s): 719079622, 401026579 Code(s): VRE7056 - Status: Acute Priority: High Current Visit: Yes (2) Suboxone maintenance treatment complicating , antepartum SNOMED Code(s): 307429660 Code(s): O99.320 - DRUG USE COMPLICATING , UNSPECIFIED TRIMESTER; F11.20 - OPIOID DEPENDENCE, UNCOMPLICATED Status: Chronic Priority: High Current Visit: Yes (3) Asthma SNOMED Code(s): 035297994 Code(s): J45.909 - UNSPECIFIED ASTHMA, UNCOMPLICATED Status: Chronic Priority: Medium Current Visit: Yes Qualifiers: Asthma severity: mild Asthma persistence: intermittent (4) Schizophrenia SNOMED Code(s): 89530779 Code(s): F20.9 - SCHIZOPHRENIA, UNSPECIFIED Status: Chronic Current Visit : Yes Qualifiers: Schizophrenia type: unspecified Qualified Code(s): F20.9 - Schizophrenia, unspecified - Problem List Review Problem List Initiated/Reviewed/Updated: Yes - My Orders Last 24 Hours: My Active Orders 07/11/17 15:39 Patient Status [ADT] Routine Cooling Warming Measures [RC] ASDIRECTED May Shower [RC] ASDIRECTED Up ad Nabila [RC] ASDIRECTED Consult to Thread Tool Grinder Set Up Operator [CONS] Routine SCREEN [BBK] Stat PATIENT RETYPE [BBK] Stat RHIG WORKUP, [BBK] Stat Benzocaine [Entg-E-Ufnshxt 20% [place]] See Dose Instructions TOP Q4H PRN Docusate Sodium [Colace] 100 mg PO BID PRN Hydrocortisone [Proctozone-HC 2.5% Crm] 0 gm TOP ASDIRECTED PRN Lanolin [Lansinoh HPA] 1 gm TOP ASDIRECTED PRN Witch Edyta [Tucks] 1 pad TOP ASDIRECTED PRN Assess Lochia [WOMSER] Per Unit Routine Assess Uterine Involution [WOMSER] Per Unit Routine Breast Pump [WOMSER] Per Unit Routine 07/11/17 15:41 Ice Therapy [OM.PC] Per Unit Routine Perineal Care [OM.PC] Per Unit Routine Sitz Bath [OM.PC] Per Unit Routine 07/11/17 15:42 Peripheral IV Discontinue [OM.PC] Routine 07/11/17 15:54 Albuterol [Ventolin HFA] 0 gm INH QID PRN 07/11/17 21:00 Docusate Sodium [Colace] 100 mg PO BID OLANZapine [ZyPREXA] 10 mg PO BEDTIME Vit with Ca/FA/Iron [ Plus Iron] 1 each PO BEDTIME traZODone 50 mg PO BEDTIME 07/11/17 Dinner Regular Diet [DIET] 07/12/17 08:24 Ibuprofen [Motrin Bulk Bottle] 200 - 600 mg PO Q6H PRN 07/12/17 08:43 Acetaminophen [Tylenol Bulk Bottle] 325 - 650 mg PO Q4H PRN - Plan Plan:: Assessment 32-year-old female 1 para 1 status post spontaneous vaginal delivery at 41-2/7 weeks intrauterine gestation postdelivery day 1 Suboxone maintenance therapy Asthma mild intermittent poor control Schizoaffective disorder Plan Continue Tylenol Motrin as needed for pain control Continue Suboxone therapy Asthma poorly controlled did discuss changing asthma medications including steroids either inhaled or oral she declined at this time product support consultant today Plan for extended stay due to Suboxone possible withdrawal of child 24-72 hours postdelivery
[2017-07-12] MEDS ORDERED: Measles, Mumps & Rubella Vaccine 0.5 ML SDV SUBCUT ONE (14:00)
[2017-07-12] MEDS: Prenatal Multivitamin with Calcium/Folic Acid/Iron Tab PO SCH (21:13)
[2017-07-12] MEDS: OLANZapine 5 MG Tab PO SCH (21:13)
[2017-07-12] MEDS: traZODone 50 MG Tab PO SCH (21:20)
[2017-07-13] MEDS: BUPRENORPHINE 8 MG PO SCH ×2 (07:24→15:31)
[2017-07-13] MEDS: Docusate Sodium 100 MG Cap PO SCH (08:22)
--- NOTE | 2017-07-13 17:17 | PCM.DCSUM1 ---
Discharge Summary - Hospital Course HPI Initial Comments: 32-year-old female 1 now para 1 status post spontaneous vaginal delivery at 42-2/7 weeks intrauterine gestation, positive for Suboxone use during . Has done well post delivery has decreased lochia pain is controlled with either ibuprofen or Tylenol is working on breast feeding claustrum's present. Objective: On day of discharge vital signs stable afebrile, lungs were clear to auscultation bilaterally cardiovascular demonstrates regular rate and rhythm S1- S2 - Discharge Data Discharge Date: 07/13/17 Discharge Disposition: Home, Self-Care 01 Condition: Good - Discharge Diagnosis/Problem(s) (1) Status post vaginal delivery SNOMED Code(s): 770243314, 949818979 ICD Code: MQU1080 - Status: Acute Priority: High Current Visit: Yes (2) Suboxone maintenance treatment complicating , antepartum SNOMED Code(s): 586553615 ICD Code: O99.320 - DRUG USE COMPLICATING , UNSPECIFIED TRIMESTER; F11.20 - OPIOID DEPENDENCE, UNCOMPLICATED Status: Chronic Priority: High Current Visit: Yes (3) Asthma SNOMED Code(s): 556537342 ICD Code: J45.909 - UNSPECIFIED ASTHMA, UNCOMPLICATED Status: Chronic Priority: Medium Current Visit: Yes Qualifiers: Asthma severity: mild Asthma persistence: intermittent (4) Schizophrenia SNOMED Code(s): 96345818 ICD Code: F20.9 - SCHIZOPHRENIA, UNSPECIFIED Status: Chronic Current Visit: Yes Qualifiers: Schizophrenia type: unspecified Qualified Code(s): F20.9 - Schizophrenia, unspecified - Patient Summary/Data Consults: Consultations 07/11/17 15:39 Consult to Lip Reading Teacher [CONS] Routine Comment: Physician Instructions: Recommended Follow-up Testing/Procedures: Plan for follow-up with Zenobia Guillen at 6 weeks - Patient Instructions Diet: Regular Diet as Tolerated Activity: Apply Ice Driving: May Drive Today Showering/Bathing: September Shower Wound/Incision Care: Keep Operative Site/Wound Site Clean and Dry Notify Provider of: Fever, Increased Pain - Discharge Plan Home Medications: Home Meds Albuterol [IJD: Albuterol HFA] 2 puff INH QID PRN 07/10/17 [History] Buprenorphine [Subutex] 12 mg SL BID 07/10/17 [History] Docosahexanoic Acid [ Dha] 200 mg PO BEDTIME 07/10/17 [History] Docusate Sodium [Colace] 100 mg PO BID 07/10/17 [History] OLANZapine [ZyPREXA] 10 mg PO BEDTIME 07/10/17 [History] traZODone HCl [Trazodone HCl] 50 mg PO BEDTIME 07/10/17 [History] - Discharge Summary/Plan Comment DC Time >30 min.: No - Patient Data Vitals - Most Recent: Last Vital Signs Temp 97.8 F 07/13/17 14:58 Pulse 79 07/13/17 14:58 Resp 18 07/13/17 14:58 BP 113/79 07/13/17 14:58 Pulse Ox 96 07/13/17 14:58 Weight - Most Recent: 100.244 kg I&O - Last 24 hours: Intake & Output 07/13/17 07/13/17 07/13/17 06:59 14:59 22:59 Intake Total 1355 Balance 1355 Lab Results - Last 24 hrs: Laboratory Results - last 24 hr 07/11/17 Range/Units 15:39 Screen Negative Med Orders - Current: Current Medications Acetaminophen (Tylenol Bulk Bottle) 325 - 650 mg PO Q4H PRN PRN Reason: Pain Last Admin: 07/12/17 08:50 Dose: 2 tab Albuterol (Ventolin Hfa) 0 gm INH QID PRN PRN Reason: Shortness of Breath Benzocaine (Mqeu-A-Zcqamoq 20% [place]) 0 gm TOP Q4H PRN PRN Reason: Perineal Comfort Measure Last Admin: 07/11/17 18:22 Dose: 1 applic Docusate Sodium (Colace) 100 mg PO BID PRN PRN Reason: Constipation Docusate Sodium (Colace) 100 mg PO BID KATHLEEN Last Admin: 07/13/17 08:22 Dose: 100 mg Emollient Ointment (Lansinoh Hpa) 1 gm TOP ASDIRECTED PRN PRN Reason: Sore Nipples Last Admin: 07/11/17 18:23 Dose: 1 applic Hydrocortisone (Proctozone-Hc 2.5% Crm) 0 gm TOP ASDIRECTED PRN PRN Reason: Itching Lactated Ringer's (Ringers, Lactated) 1,000 mls @ 75 mls/hr IV ASDIRECTED [facility] Last Admin: 07/11/17 05:00 Dose: 75 mls/hr Ibuprofen (Motrin Bulk Bottle) 200 - 600 mg PO Q6H PRN PRN Reason: Pain Last Admin: 07/12/17 11:36 Dose: 2 tab Olanzapine (Zyprexa) 10 mg PO BEDTIME [facility] Last Admin: 07/12/17 21:13 Dose: 10 mg Ondansetron HCl (Zofran Odt) 4 mg PO Q4H PRN PRN Reason: Nausea/Vomiting Last Admin: 07/11/17 08:39 Dose: 4 mg Buprenorphine Sl 8mg (TabPom) 0 each PO BID@0800,1600 [facility] Last Admin: 07/13/17 15:31 Dose: 1.5 each Prenat Multivit/Counseling Specialist/Iron/Folic Ac ( Plus Iron) 1 each PO BEDTIME [facility] Last Admin: 07/12/17 21:13 Dose: 1 each Sodium Chloride (Saline Flush) 10 ml FLUSH ASDIRECTED PRN PRN Reason: Keep Vein Open Trazodone HCl (Trazodone) 50 mg PO BEDTIME [facility] Last Admin: 07/12/17 21:20 Dose: 50 mg Witch Edyta (Tucks) 1 pad TOP ASDIRECTED PRN PRN Reason: Hemorrhoids Last Admin: 07/11/17 18:22 Dose: 1 pad Discontinued Medications Diphenhydramine HCl (Benadryl) 25 mg IVPUSH Q6H PRN PRN Reason: ITCHING Ephedrine Sulfate (Ephedrine Sulfate) 5 mg IVPUSH ONETIME ONE Stop: 07/11/17 05:44 Last Admin: 07/11/17 11:10 Dose: Not Given Ephedrine Sulfate (Ephedrine Sulfate) 5 - 10 mg IV ASDIRECTED PRN PRN Reason: Systolic BP less than 100 Lactated Ringer's (Ringers, Lactated) 1,000 mls @ 999 mls/hr IV BOLUS ONE Stop: 07/11/17 05:30 Last Admin: 07/11/17 09:37 Dose: Not Given Lactated Ringer's (Ringers, Lactated) 1,000 mls @ 75 mls/hr IV ASDIRECTED [facility] Last Admin: 07/11/17 01:10 Dose: 75 mls/hr Oxytocin/Sodium Chloride (Pitocin In Ns 20 Units/1,000 Ml) 20 unit in 1,000 mls @ 6 mls/hr IV TITRATE KATHLEEN; 2 MUNITS/MIN PRN Reason: Protocol Last Titration: 07/11/17 17:40 Dose: 125 mls/hr Lactated Ringer's (Ringers, Lactated) 1,000 mls @ 999 mls/hr IV .BOLUS ONE Stop: 07/11/17 06:43 Last Admin: 07/11/17 04:30 Dose: 999 mls/hr Lactated Ringer's (Ringers, Lactated) 1,000 mls @ 999 mls/hr IV .BOLUS ONE Stop: 07/11/17 06:43 Last Admin: 07/11/17 09:38 Dose: Not Given Ropivacaine (Naropin 0.2%) Confirm Administered Dose 100 mls @ as directed .ROUTE .STK-MED ONE Stop: 07/11/17 06:47 Ropivacaine (Naropin 0.2%) 200 mls @ 0 mls/hr EPIDUR ASDIRECTED KATHLEEN; Titrate PRN Reason: Protocol Lactated Ringer's (Ringers, Lactated) 500 mls @ 999 mls/hr IV BOLUS ONE Stop: 07/11/17 13:52 Last Admin: 07/11/17 13:25 Dose: 999 mls/hr Ibuprofen (Motrin) 800 mg PO Q6H PRN PRN Reason: mild pain or fever Last Admin: 07/12/17 03:24 Dose: 800 mg Measles/Mumps/Rubella Vaccine Live (M-M-R Ii Vaccine) 0.5 ml SUBCUT .ONCE ONE Stop: 07/12/17 14:01 Last Admin: 07/12/17 15:10 Dose: 0.5 ml Mineral Oil (Muri-Lube) Confirm Administered Dose 10 ml .ROUTE .STK-MED ONE Stop: 07/11/17 14:40 Last Admin: 07/11/17 17:10 Dose: Not Given Mineral Oil (Muri-Lube) 15 ml TOP ONETIME ONE Stop: 07/11/17 16:51 Last Admin: 07/11/17 17:10 Dose: 10 ml Naloxone HCl (Narcan) 0.1 mg IVPUSH Q5M PRN PRN Reason: IF RESP RATE LESS THAN 6 Prenat Multivit/Counseling Specialist/Iron/Folic Ac ( Plus Iron) 1 each PO DAILY KATHLEEN *Q Meaningful Use (DIS) - VTE *Q VTE Criteria *Q: - Stroke *Q Stroke Criteria *Q: - AMI *Q AMI Criteria *Q:
== END 2017-07-13 18:31 | disposition home or self-care (01) | DRG 775 ==
LOC: JP.OBCHECK 00:19 → JP.OB 00:30 → OBSVTOIN 15:05 → JP.MS 19:09
PROVIDERS: ADMIT Nurse Practitioner Family; ATTEND Nurse Practitioner Family
PROC: 10E0XZZ Delivery of Products of Conception, External Approach (ICD-10-PCS; principal; 2017-07-11)
PROC: 0KQM0ZZ Repair Perineum Muscle, Open Approach (ICD-10-PCS; 2017-07-11)
PROC: 3E0P7VZ Introduction of Hormone into Female Reproductive, Via Natural or Artificial Opening (ICD-10-PCS; 2017-07-11)
PROC: 3E033VJ Introduction of Other Hormone into Peripheral Vein, Percutaneous Approach (ICD-10-PCS; 2017-07-11)
PROC: 00HU33Z Insertion of Infusion Device into Spinal Canal, Percutaneous Approach (ICD-10-PCS; 2017-07-11)
PROC: 3E0334Z Introduction of Serum, Toxoid and Vaccine into Peripheral Vein, Percutaneous Approach (ICD-10-PCS; 2017-07-12)
DX: O69.81X0 Labor and delivery complicated by cord around neck, without compression, not applicable or unspecified (principal); O99.324 Drug use complicating childbirth; O36.0930 Maternal care for other rhesus isoimmunization, third trimester, not applicable or unspecified; F11.20 Opioid dependence, uncomplicated; O99.334 Smoking (tobacco) complicating childbirth; F17.210 Nicotine dependence, cigarettes, uncomplicated; O99.344 Other mental disorders complicating childbirth; O99.52 Diseases of the respiratory system complicating childbirth; O70.1 Second degree perineal laceration during delivery; Z3A.41 41 weeks gestation of pregnancy; Z37.0 Single live birth; F20.9 Schizophrenia, unspecified; J45.20 Mild intermittent asthma, uncomplicated; F15.21 Other stimulant dependence, in remission
CPT/HCPCS: 36415; 51702; 59300; 59409; 84112; 85025; 85027; 85460; 86850; 86900; 86901; 90471; 90707; 99211; A9270-GY; J2590; J2790; J2795; J7120

== ENCOUNTER 2017-12-28 12:45 | Emergency (ER) | payer MEDICAID ==
--- NOTE | 2017-12-28 13:33 | EDM.PDOC ---
ED HPI GENERAL MEDICAL PROBLEM - General Chief Complaint: ENT Problem Stated Complaint: LEFT SIDE ON NECK SWOLLEN Time Seen by Provider: 12/28/17 13:10 Source of Information: Reports: Patient, Family History Limitations: Reports: No Limitations - History of Present Illness INITIAL COMMENTS - FREE TEXT/NARRATIVE: 32-year-old female that noticed a swollen area under the angle of the jaw on the left side for the last 12 hours, not painful and she has not had these symptoms in the past. She could feel a fullness when she swallows or turning her head. She's had no recent illness or trauma. She did have a baby 5 months ago. Onset: Unknown/Unsure Location: Reports: Neck Severity: Mild Associated Symptoms: Reports: No Other Symptoms LEFT THROAT Pain Score (Numeric/FACES): 2 - Related Data Allergies Allergy/AdvReac Type Severity Reaction Status Date / Time No Known Allergies Allergy Verified 12/28/17 13:08 Home Meds: Home Meds Albuterol [IJD: Albuterol HFA] 2 puff INH QID PRN 07/10/17 [History] Buprenorphine [Subutex] 12 mg SL BID 07/10/17 [History] Docosahexanoic Acid [ Dha] 200 mg PO BEDTIME 07/10/17 [History] Docusate Sodium [Colace] 100 mg PO BID 07/10/17 [History] OLANZapine [ZyPREXA] 10 mg PO BEDTIME 07/10/17 [History] Past Medical History HEENT History: Reports: Impaired Vision Respiratory History: Reports: Asthma 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: Reports: Neurological History: Reports: Seizure Psychiatric History: Reports: Anxiety, Suicidal Ideation, Other (See Below) 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 - Infectious Disease History Infectious Disease History: Reports: Chicken Pox - Past Surgical History HEENT Surgical History: Reports: Oral Surgery Other HEENT Surgeries/Procedures: wisdom teeth romoved Respiratory Surgical History: Reports: None GI Surgical History: Reports: Cholecystectomy Neurological Surgical History: Reports: None Social & Family History - Family History Family Medical History: Noncontributory Endocrine/Metabolic: Reports: Diabetes, type II Other Endocrine/Metabolic Family History: father - Tobacco Use Smoking Status *Q: Current Every Day Smoker Years of Tobacco use: 20 Packs/Tins Daily: 0.5 - Caffeine Use Caffeine Use: Reports: Coffee, Tea Other Caffeine Use: 4 per day - Recreational Drug Use Recreational Drug Use: No ED ROS ENT - Review of Systems Review Of Systems: See Below Constitutional: Denies: Fever, Chills, Malaise HEENT: Denies: Dental Pain, Ear Pain, Throat Pain Respiratory: Denies: Shortness of Breath Cardiovascular: Denies: Chest Pain GI/Abdominal: Denies: Nausea, Vomiting Neurological: Denies: Headache Psychiatric: Reports: Anxiety ED EXAM, ENT - Physical Exam Exam: See Below Exam Limited By: No Limitations General Appearance: Alert, No Apparent Distress Eye Exam: Bilateral Eye: Normal Inspection Mouth/Throat: Normal Inspection Head: Atraumatic Neck: Other (Patient has a smooth palpable firmness or mass under the left angle of the jaw and anterior cervical chain. It is not fluctuant, it is not tender or warm. There is some surrounding soft tissue fullness.) Course - Vital Signs Last Recorded V/S: Last Vital Signs Temp 97.7 F 12/28/17 13:10 Pulse 83 12/28/17 13:10 Resp 12 12/28/17 13:10 BP 134/75 12/28/17 13:10 Pulse Ox 98 12/28/17 13:10 - Re-Assessments/Exams Free Text/Narrative Re-Assessment/Exam: 12/28/17 13:32 I'm unsure if this is sudden development of a cystic lesion or this is lymphadenopathy. We'll start the patient on cephalexin and have her recheck in 48 hours at the clinic and obtain an ultrasound if not improving. She'll return tomorrow if worsening with pain or if she develops redness or fever. 12/28/17 13:35 Patient was discharged on Augmentin 875 mg twice daily, and encouraged to recheck in 2-3 days if not improving to check a CBC and an ultrasound of the neck. She can return tomorrow if worsening such as increased pain or fever. Departure - Departure Time of Disposition: 13:47 Disposition: Home, Self-Care 01 Condition: Good Clinical Impression: Left cervical lymphadenopathy - Discharge Information Instructions: Lymphadenopathy Referrals: PCP,None [Primary Care Provider] - Forms: ED Department Discharge Care Plan Goals: Take one dose of antibiotic twice a day with food for at least the next 7 days. Recheck tomorrow if worsening such as fever or increased pain despite antibiotic , or recheck in 2-3 days if not improving satisfactorily.
== END 2017-12-28 13:47 | disposition home or self-care (01) ==
LOC: JP.ED 12:45
DX: R59.0 Localized enlarged lymph nodes (principal); F17.210 Nicotine dependence, cigarettes, uncomplicated
CPT/HCPCS: 99283

== ENCOUNTER 2018-09-17 13:14 | Emergency (ER) | payer MEDICAID ==
--- NOTE | 2018-09-17 15:00 | EDM.PDOC ---
ED HPI GENERAL MEDICAL PROBLEM - General Chief Complaint: Genitourinary Problem Stated Complaint: HEAVY MESTRUATION FLOW Time Seen by Provider: 09/17/18 14:40 Source of Information: Reports: Patient History Limitations: Reports: No Limitations - History of Present Illness INITIAL COMMENTS - FREE TEXT/NARRATIVE: 33-year-old female who has a [id number] child, is on oral contraception and has not missed any doses but is having a lot of breakthrough bleeding during the hormone part of her cycle, and now that she is on the withdrawal week she's having very heavy flow. Associated Symptoms: Reports: No Other Symptoms, Other (Denies nausea or lightheaded feelings when standing) Uterine Pain Score (Numeric/FACES): 2 - Related Data Allergies Allergy/AdvReac Type Severity Reaction Status Date / Time No Known Allergies Allergy Verified 09/17/18 14:25 Home Meds: Home Meds Albuterol [IJD: Albuterol HFA] 2 puff INH QID PRN 07/10/17 [History] Docusate Sodium [Colace] 100 mg PO BID 07/10/17 [History] OLANZapine [ZyPREXA] 10 mg PO BEDTIME 07/10/17 [History] Control Pill 1 tab PO DAILY 09/17/18 [History] Buprenorphine HCl/Naloxone HCl [Suboxone 12 mg-3 mg Sl Film] 1 film SL DAILY [History] Doxepin [SINEquan] 50 mg PO BEDTIME 09/17/18 [History] Past Medical History HEENT History: Reports: Impaired Vision Respiratory History: Reports: Asthma 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: Neurological History: Reports: Seizure Psychiatric History: Reports: Anxiety, Suicidal Ideation, Other (See Below) 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 - Infectious Disease History Infectious Disease History: Reports: Chicken Pox - Past Surgical History HEENT Surgical History: Reports: Oral Surgery Other HEENT Surgeries/Procedures: wisdom teeth romoved Respiratory Surgical History: Reports: None GI Surgical History: Reports: Cholecystectomy Social & Family History - Family History Family Medical History: Noncontributory Endocrine/Metabolic: Reports: Diabetes, type II Other Endocrine/Metabolic Family History: father - Tobacco Use Smoking Status *Q: Current Every Day Smoker Years of Tobacco use: 19 Packs/Tins Daily: 0.5 Used Tobacco, but Quit: No Second Hand Smoke Exposure: Yes - Caffeine Use Caffeine Use: Reports: Soda Other Caffeine Use: 4 per day - Recreational Drug Use Recreational Drug Use: Yes Recreational Drug Type: Reports: Marijuana/Hashish, Methamphetamine Recreational Drug Use Frequency: Not Used In Over 6 Months ED ROS GENERAL - Review of Systems Review Of Systems: See Below Constitutional: Denies: Fever, Chills, Malaise Respiratory: Denies: Shortness of Breath Cardiovascular: Denies: Chest Pain GI/Abdominal: Denies: Abdominal Pain, Nausea, Vomiting : Reports: No Symptoms Skin: Denies: Pallor Neurological: Denies: Dizziness, Headache ED EXAM, GENERAL - Physical Exam Exam: See Below Exam Limited By: No Limitations General Appearance: Alert, No Apparent Distress Respiratory/Chest: No Respiratory Distress Cardiovascular: Regular Rate, Rhythm. No: Tachycardia GI/Abdominal: Non-Tender Neurological: Alert, Oriented Psychiatric: Normal Affect, Normal Mood Skin Exam: Warm, Dry Course - Vital Signs Last Recorded V/S: Last Vital Signs Temp 98.2 F 09/17/18 14:36 Pulse 73 09/17/18 14:36 Resp 16 09/17/18 14:36 BP 128/84 09/17/18 14:36 Pulse Ox 97 09/17/18 14:36 - Orders/Labs/Meds Labs: Laboratory Tests 09/17/18 Range/Units 14:51 WBC 6.7 (4.5-11.0) K/uL RBC 4.96 (3.30-5.50) M/uL Hgb 14.8 D (12.0-15.0) g/dL Hct 42.5 (36.0-48.0) % MCV 86 (80-98) fL MCH 30 (27-31) pg MCHC 35 (32-36) % Plt Count 194 (150-400) K/uL Neut % (Auto) 58 (36-66) % Lymph % (Auto) 35 (24-44) % [place] % (Auto) 5 (2-6) % Eos % (Auto) 2 (2-4) % Baso % (Auto) 0 (0-1) % - Re-Assessments/Exams Free Text/Narrative Re-Assessment/Exam: 09/17/18 15:17 CBC was obtained and is very reassuring, hemoglobin is 14.8. I think she should follow through with her [facility] provider to discuss hormone changes better suited to her ovulatory cycles. Departure - Departure Time of Disposition: 15:28 Disposition: Home, Self-Care 01 Clinical Impression: Dysfunctional uterine hemorrhage - Discharge Information Instructions: Abnormal Uterine Bleeding, [id number] Referrals: PCP,None [Primary Care Provider] - Forms: ED Department Discharge Care Plan Goals: Continue your current hormone therapy as prescribed until able to discuss with your [facility] provider any possible changes.
== END 2018-09-17 15:28 | disposition home or self-care (01) ==
LOC: JP.ED 13:14
DX: N93.8 Other specified abnormal uterine and vaginal bleeding (principal); F17.210 Nicotine dependence, cigarettes, uncomplicated; J45.909 Unspecified asthma, uncomplicated; Z79.899 Other long term (current) drug therapy
CPT/HCPCS: 36415; 85025; 99284

== ENCOUNTER 2021-03-04 23:22 | Emergency (ER) | payer MEDICAID ==
--- NOTE | 2021-03-04 23:35 | EDM.PDOC ---
<OfficerChas - Last Filed: 03/05/21 06:52> ED HPI GENERAL MEDICAL PROBLEM - General Stated Complaint: MEDICAL VIA [place] Time Seen by Provider: 03/04/21 23:31 Source of Information: Reports: Patient, EMS, RN Notes Reviewed History Limitations: Reports: No Limitations - History of Present Illness INITIAL COMMENTS - FREE TEXT/NARRATIVE: 35-year-old female presents emergency department today via EMS services following drug overdose the numbers are not clear we are still working on that but she took gabapentin and we believe olanzapine. This was unwitnessed time of ingestion she is arousable to painful stimuli GCS of 10 however we are unable to confirm quantities exact medications and time of ingestion. She was found by her parents in the garage she is cool, CPR was started by parents in the garage stopped when EMS arrived vital signs have been stable - Related Data Allergies Allergy/AdvReac Type Severity Reaction Status Date / Time No Known Allergies Allergy Verified 03/05/21 00:16 Home Meds: Home Meds Albuterol [IJD: Albuterol HFA] 2 puff INH QID PRN 07/10/17 [History] Docusate Sodium [Colace] 100 mg PO BID 07/10/17 [History] OLANZapine [ZyPREXA] 10 mg PO BEDTIME 07/10/17 [History] Control Pill 1 tab PO DAILY 09/17/18 [History] Buprenorphine HCl/Naloxone HCl [Suboxone 12 mg-3 mg Sl Film] 1 film SL DAILY 09/17/18 [History] Doxepin [SINEquan] 50 mg PO BEDTIME 09/17/18 [History] ALPRAZolam [Alprazolam] 0.5 mg PO TID 03/05/21 [History] Zolpidem Tartrate [Ambien] 10 mg PO BEDTIME 03/05/21 [History] Past Medical History HEENT History: Reports: Impaired Vision Respiratory History: Reports: Asthma 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: Neurological History: Reports: Seizure Psychiatric History: Reports: Anxiety, Suicidal Ideation, Other (See Below) 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 - Infectious Disease History Infectious Disease History: Reports: Chicken Pox - Past Surgical History HEENT Surgical History: Reports: Oral Surgery Other HEENT Surgeries/Procedures: wisdom teeth romoved Respiratory Surgical History: Reports: None GI Surgical History: Reports: Cholecystectomy Social & Family History - Family History Family Medical History: No Pertinent Family History Endocrine/Metabolic: Reports: Diabetes, type II Other Endocrine/Metabolic Family History: father - Caffeine Use Caffeine Use: Reports: Soda Other Caffeine Use: 4 per day ED ROS GENERAL - Review of Systems Review Of Systems: Unable To Obtain Reason Not Obtained: Obtunded GCS of 10 ED EXAM, GENERAL - Physical Exam Exam: See Below Exam Limited By: Physical Impairment General Appearance: Obtunded (GCS of 10) Eye Exam: Bilateral Eye: PERRL Respiratory/Chest: No Respiratory Distress, Lungs Clear, Normal Breath Sounds, No Accessory Muscle Use, Chest Non-Tender Cardiovascular: Regular Rate, Rhythm, No Murmur GI/Abdominal: Soft, Non-Tender #1 Interpretation EKG Date: 03/04/21 Time: 23:54 Rhythm: NSR [place]: Normal P-Wave: Present QRS: Normal ST-T: Normal QT: Normal Comparison: NA - No Prior EKG Course - Re-Assessments/Exams Free Text/Narrative Re-Assessment/Exam: 03/05/21 06:52 Her GCS chain stick significantly went from a 11 to a 3 respiration was severely depressed was anticipating intubation however thought I try Romazicon prior to extubation she was given a total of 0.4 respiratory therapy was called planning on proceeding with intubation all of a sudden she aroused was able to talk to us and give some indication she denied suicidal ideation at that time states she just wanted to go to sleep however her story does not fit as she was found in the garage. Departure - Departure Disposition: Home, Self-Care 01 Clinical Impression: Medication overdose Qualifiers: Encounter type: initial encounter Injury intent: undetermined intent Qualified Code(s): T50.904A - Poisoning by unspecified drugs, medicaments and biological substances, undetermined, initial encounter - Discharge Information Referrals: PCP,None [Primary Care Provider] - Additional Instructions: Call your mental health provider tomorrow for follow up. Return as needed. <Brennan Griggs - Last Filed: 03/05/21 13:57> Course - Vital Signs Last Recorded V/S: Last Vital Signs Temp 36.9 C 03/05/21 09:30 Pulse 81 03/05/21 13:04 Resp 11 L 03/05/21 13:04 BP 113/72 03/05/21 13:04 Pulse Ox 90 L 03/05/21 13:04 - Orders/Labs/Meds Orders: Active Orders 24 hr Category Date Time Status Peripheral IV Care [RC] . DIRECTED Care 03/04/21 23:44 Active Sodium Chloride 0.9% [Normal Saline] 1,000 ml Med 03/04/21 23:45 Active IV .BOLUS Sodium Chloride 0.9% [Saline Flush] Med 03/04/21 23:44 Active 10 ml FLUSH ASDIRECTED PRN Peripheral IV Insertion Adult [OM.PC] Urgent Oth 03/04/21 23:44 Ordered EKG 12 Lead [EK] Stat Ther 03/04/21 23:44 Ordered Medication Orders Sodium Chloride (Normal Saline) 1,000 mls @ 999 mls/hr IV .BOLUS KATHLEEN Last Admin: 03/04/21 23:48 Dose: 999 mls/hr Documented by: LEIDY Sodium Chloride (Sodium Chloride 0.9% 10 Ml Syringe) 10 ml FLUSH ASDIRECTED PRN PRN Reason: Keep Vein Open Last Admin: 03/04/21 23:50 Dose: 10 ml Documented by: LEIDY Labs: Laboratory Tests 03/04/21 03/04/21 03/04/21 Range/Units 23:44 23:44 23:44 WBC 9.6 (4.5-11.0) K/uL RBC 5.26 (3.30-5.50) M/uL Hgb 15.7 H (12.0-15.0) g/dL Hct 45.5 (36.0-48.0) % MCV 87 (80-98) fL MCH 30 (27-31) pg MCHC 35 (32-36) % Plt Count 167 (150-400) K/uL Neut % (Auto) 68.0 H (36-66) % Lymph % (Auto) 25.0 (24-44) % [place] % (Auto) 5.0 (2-6) % Eos % (Auto) 2.0 (2-4) % Baso % (Auto) 0.0 (0-1) % Puncture Site ABG pH (7.350-7.450) ABG pCO2 (35.0-42.0) mmHg ABG pO2 (75.0-100.0) mmHg ABG HCO3 (22.0-26.0) mmol/L ABG Total CO2 (21.0-25.0) mmol/L ABG O2 Saturation (95.0-98.0) % ABG O2 Content (15.0-23.0) %vol ABG Base Excess mm/L ABG Hemoglobin (12.0-16.0) g/dL ABG Oxyhemoglobin % ABG Carboxyhemoglobin (0.0-1.6) % ABG Methemoglobin % Patrick Test O2 Delivery Device Oxygen Flow Rate L Sodium 141 (140-148) mmol/L Potassium 4.2 (3.6-5.2) mmol/L Chloride 101 (100-108) mmol/L Carbon Dioxide 32 (21-32) mmol/L Anion Gap 8.5 (5.0-14.0) mmol/L BUN 11 (7-18) mg/dL Creatinine 0.9 (0.6-1.0) mg/dL Est Cr Clr Drug Dosing 87.17 mL/min Estimated GFR (MDRD) > 60 (>60) Glucose 116 H (74-106) mg/dL Lactic Acid (0.4-2.0) mmol/L Calcium 8.9 (8.5-10.1) mg/dL Total Bilirubin 0.2 (0.2-1.0) mg/dL AST 38 H (15-37) U/L ALT 57 (12-78) U/L Alkaline Phosphatase 99 (46-116) U/L Total Protein 7.8 (6.4-8.2) g/dL Albumin 4.0 (3.4-5.0) g/dL Globulin 3.8 H (2.3-3.5) g/dL Albumin/Globulin Ratio 1.1 L (1.2-2.2) Salicylates 6.5 (2.0-20.0) mg/dL Urine Opiates Screen (NEGATIVE) Ur Oxycodone Screen (NEGATIVE) Urine Methadone Screen (NEGATIVE) Ur Propoxyphene Screen (NEGATIVE) Acetaminophen 0.0 L (10.0-30.0) ug/mL Ur Barbiturates Screen (NEGATIVE) Ur Tricyclics Screen (NEGATIVE) Ur Phencyclidine Scrn (NEGATIVE) Ur Amphetamine Screen (NEGATIVE) U Methamphetamines Scrn (NEGATIVE) Urine MDMA Screen (NEGATIVE) U Benzodiazepines Scrn (NEGATIVE) U Cocaine Metab Screen (NEGATIVE) U Marijuana (THC) Screen (NEGATIVE) Ethyl Alcohol mg/dL SARS CoV-2 RNA Rapid HAYLIE 03/04/21 03/04/21 03/05/21 Range/Units 23:44 23:45 01:10 WBC (4.5-11.0) K/uL RBC (3.30-5.50) M/uL Hgb (12.0-15.0) g/dL Hct (36.0-48.0) % MCV (80-98) fL MCH (27-31) pg MCHC (32-36) % Plt Count (150-400) K/uL Neut % (Auto) (36-66) % Lymph % (Auto) (24-44) % [place] % (Auto) (2-6) % Eos % (Auto) (2-4) % Baso % (Auto) (0-1) % Puncture Site R radial ABG pH 7.263 L (7.350-7.450) ABG pCO2 65.4 H (35.0-42.0) mmHg ABG pO2 67.3 L (75.0-100.0) mmHg ABG HCO3 28.6 H (22.0-26.0) mmol/L ABG Total CO2 25.8 H (21.0-25.0) mmol/L ABG O2 Saturation 91.3 L (95.0-98.0) % ABG O2 Content 18.1 (15.0-23.0) %vol ABG Base Excess 0.1 mm/L ABG Hemoglobin 14.9 (12.0-16.0) g/dL ABG Oxyhemoglobin 86.2 % ABG Carboxyhemoglobin 4.5 H (0.0-1.6) % ABG Methemoglobin 1.1 % Patrick Test Ok O2 Delivery Device Nasal cannula Oxygen Flow Rate 2.0 L Sodium (140-148) mmol/L Potassium (3.6-5.2) mmol/L Chloride (100-108) mmol/L Carbon Dioxide (21-32) mmol/L Anion Gap (5.0-14.0) mmol/L BUN (7-18) mg/dL Creatinine (0.6-1.0) mg/dL Est Cr Clr Drug Dosing mL/min Estimated GFR (MDRD) (>60) Glucose (74-106) mg/dL Lactic Acid 1.1 (0.4-2.0) mmol/L Calcium (8.5-10.1) mg/dL Total Bilirubin (0.2-1.0) mg/dL AST (15-37) U/L ALT (12-78) U/L Alkaline Phosphatase (46-116) U/L Total Protein (6.4-8.2) g/dL Albumin (3.4-5.0) g/dL Globulin (2.3-3.5) g/dL Albumin/Globulin Ratio (1.2-2.2) Salicylates (2.0-20.0) mg/dL Urine Opiates Screen (NEGATIVE) Ur Oxycodone Screen (NEGATIVE) Urine Methadone Screen (NEGATIVE) Ur Propoxyphene Screen (NEGATIVE) Acetaminophen (10.0-30.0) ug/mL Ur Barbiturates Screen (NEGATIVE) Ur Tricyclics Screen (NEGATIVE) Ur Phencyclidine Scrn (NEGATIVE) Ur Amphetamine Screen (NEGATIVE) U Methamphetamines Scrn (NEGATIVE) Urine MDMA Screen (NEGATIVE) U Benzodiazepines Scrn (NEGATIVE) U Cocaine Metab Screen (NEGATIVE) U Marijuana (THC) Screen (NEGATIVE) Ethyl Alcohol < 3 mg/dL SARS CoV-2 RNA Rapid HAYLIE 03/05/21 03/05/21 03/05/21 Range/Units 05:57 06:16 06:22 WBC (4.5-11.0) K/uL RBC (3.30-5.50) M/uL Hgb (12.0-15.0) g/dL Hct (36.0-48.0) % MCV (80-98) fL MCH (27-31) pg MCHC (32-36) % Plt Count (150-400) K/uL Neut % (Auto) (36-66) % Lymph % (Auto) (24-44) % [place] % (Auto) (2-6) % Eos % (Auto) (2-4) % Baso % (Auto) (0-1) % Puncture Site ABG pH (7.350-7.450) ABG pCO2 (35.0-42.0) mmHg ABG pO2 (75.0-100.0) mmHg ABG HCO3 (22.0-26.0) mmol/L ABG Total CO2 (21.0-25.0) mmol/L ABG O2 Saturation (95.0-98.0) % ABG O2 Content (15.0-23.0) %vol ABG Base Excess mm/L ABG Hemoglobin (12.0-16.0) g/dL ABG Oxyhemoglobin % ABG Carboxyhemoglobin (0.0-1.6) % ABG Methemoglobin % Patrick Test O2 Delivery Device Oxygen Flow Rate L Sodium (140-148) mmol/L Potassium (3.6-5.2) mmol/L Chloride (100-108) mmol/L Carbon Dioxide (21-32) mmol/L Anion Gap (5.0-14.0) mmol/L BUN (7-18) mg/dL Creatinine (0.6-1.0) mg/dL Est Cr Clr Drug Dosing mL/min Estimated GFR (MDRD) (>60) Glucose (74-106) mg/dL Lactic Acid (0.4-2.0) mmol/L Calcium (8.5-10.1) mg/dL Total Bilirubin (0.2-1.0) mg/dL AST (15-37) U/L ALT (12-78) U/L Alkaline Phosphatase (46-116) U/L Total Protein (6.4-8.2) g/dL Albumin (3.4-5.0) g/dL Globulin (2.3-3.5) g/dL Albumin/Globulin Ratio (1.2-2.2) Salicylates 5.7 (2.0-20.0) mg/dL Urine Opiates Screen Negative (NEGATIVE) Ur Oxycodone Screen Negative (NEGATIVE) Urine Methadone Screen Negative (NEGATIVE) Ur Propoxyphene Screen Negative (NEGATIVE) Acetaminophen (10.0-30.0) ug/mL Ur Barbiturates Screen Negative (NEGATIVE) Ur Tricyclics Screen Presumptive positive H (NEGATIVE) Ur Phencyclidine Scrn Negative (NEGATIVE) Ur Amphetamine Screen Negative (NEGATIVE) U Methamphetamines Scrn Negative (NEGATIVE) Urine MDMA Screen Negative (NEGATIVE) U Benzodiazepines Scrn Presumptive positive H (NEGATIVE) U Cocaine Metab Screen Negative (NEGATIVE) U Marijuana (THC) Screen Negative (NEGATIVE) Ethyl Alcohol mg/dL SARS CoV-2 RNA Rapid HAYLIE Negative Meds: Medications Generic Name Dose Route Start Last Admin Trade Name Freq PRN Reason Stop Dose Admin Sodium Chloride 1,000 mls @ 999 mls/hr 03/04/21 23:45 03/04/21 23:48 Normal Saline IV 999 mls/hr .BOLUS KATHLEEN Administration Sodium Chloride 10 ml 03/04/21 23:44 03/04/21 23:50 Sodium Chloride 0.9% 10 Ml Syringe FLUSH 10 ml ASDIRECTED PRN Administration Keep Vein Open Discontinued Medications Generic Name Dose Route Start Last Admin Trade Name Freq PRN Reason Stop Dose Admin Flumazenil Confirm 03/05/21 00:19 03/05/21 06:56 Flumazenil 0.1 Mg/Ml 5 Ml Mdv Administered 03/05/21 00:20 Not Given Dose 0.5 mg .ROUTE .STK-MED ONE Flumazenil 0.2 mg 03/05/21 06:47 03/05/21 00:23 Flumazenil 0.1 Mg/Ml 5 Ml Mdv IVPUSH 03/05/21 06:48 0.2 mg NOW STA Administration Flumazenil 0.2 mg 03/05/21 06:48 03/05/21 00:20 Flumazenil 0.1 Mg/Ml 5 Ml Mdv IVPUSH 03/05/21 06:49 0.2 mg NOW STA Administration - Re-Assessments/Exams Free Text/Narrative Re-Assessment/Exam: 03/05/21 13:54 Crisis came and assessed her and felt she was at this time safe from a psychological stand point to discharge. Departure - Departure Time of Disposition: 14:00 Condition: Good - Discharge Information *PRESCRIPTION DRUG MONITORING PROGRAM REVIEWED*: Not Applicable *COPY OF PRESCRIPTION DRUG MONITORING REPORT IN PATIENT SHRUTHI: Not Applicable Sepsis Event Note (ED) - Focused Exam Vital Signs: Vital Signs Temp Pulse Resp BP Pulse Ox 03/05/21 13:04 81 11 L 113/72 90 L 03/05/21 11:30 80 14 113/72 93 L 03/05/21 10:30 70 12 111/58 L 92 L 03/05/21 09:30 36.9 C 74 14 113/62 93 L 03/05/21 08:30 70 13 110/65 94 L 03/05/21 07:30 81 13 122/63 94 L 03/05/21 06:30 79 11 L 111/59 L 91 L 03/05/21 05:38 85 12 123/72 94 L 03/05/21 05:06 80 121/68 03/05/21 04:38 74 113/75 03/05/21 04:07 75 114/73 03/05/21 03:23 70 106/69 03/05/21 03:08 69 14 105/64 96 03/05/21 02:24 67 12 108/66 96
[2021-03-04] MEDS ORDERED: Sodium Chloride 0.9% 10 ML Syringe FLUSH PRN (23:44)
[2021-03-04] MEDS ORDERED: Sodium Chloride 0.9% 1,000 ML IV SCH (23:45)
[2021-03-05] MEDS ORDERED: Flumazenil 0.1 MG/ML 5 ML MDV ONE (00:19)
[2021-03-05] MEDS ORDERED: Flumazenil 0.1 MG/ML 5 ML MDV IVPUSH STA ×2 (06:47→06:48)
== END 2021-03-05 14:16 | disposition home or self-care (01) ==
LOC: JP.ED 23:22
DX: T50.904A Poisoning by unspecified drugs, medicaments and biological substances, undetermined, initial encounter (principal); Z20.822 Contact with and (suspected) exposure to COVID-19
CPT/HCPCS: 36415; 36600; 80053; 80143; 80179; 80305-QW; 80307; 82803; 83605; 85025; 93005; 96374; 99284-25; J3490; J7030; U0002

== ENCOUNTER 2021-04-01 09:24 | Emergency (ER) | payer MEDICAID ==
--- NOTE | 2021-04-01 11:03 | EDM.PDOC ---
ED HPI GENERAL MEDICAL PROBLEM - General Chief Complaint: Respiratory Problem Stated Complaint: COUGH, SOB Time Seen by Provider: 04/01/21 10:40 Source of Information: Reports: Patient, RN Notes Reviewed History Limitations: Reports: No Limitations - History of Present Illness INITIAL COMMENTS - FREE TEXT/NARRATIVE: 36-year-old female presents emergency department day complaint of cough and shortness of breath she is a tobacco user other members in the family have been ill she has been ill for about 6 days she is not getting any better she does have sputum production fevers at home no nausea vomiting no chest pain - Related Data Allergies Allergy/AdvReac Type Severity Reaction Status Date / Time No Known Allergies Allergy Verified 04/01/21 09:56 Home Meds: Home Meds Albuterol [IJD: Albuterol HFA] 2 puff INH QID PRN 07/10/17 [History] Docusate Sodium [Colace] 100 mg PO BID 07/10/17 [History] OLANZapine [ZyPREXA] 10 mg PO BEDTIME 07/10/17 [History] Buprenorphine HCl/Naloxone HCl [Suboxone 12 mg-3 mg Sl Film] 1 film SL DAILY 09/17/18 [History] Doxepin [SINEquan] 50 mg PO BEDTIME 09/17/18 [History] ALPRAZolam [Alprazolam] 0.5 mg PO TID 03/05/21 [History] Zolpidem Tartrate [Ambien] 10 mg PO BEDTIME 03/05/21 [History] predniSONE [Prednisone] 20 mg PO DAILY 04/01/21 [History] Past Medical History HEENT History: Reports: Impaired Vision Respiratory History: Reports: Asthma [employer]ICE History: Reports: Neurological History: Reports: Seizure Psychiatric History: Reports: Anxiety, Depression, Suicide Attempt, Suicidal Ideation, Other (See Below) 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 - Infectious Disease History Infectious Disease History: Reports: Chicken Pox, Novel Coronavirus - Past Surgical History HEENT Surgical History: Reports: Oral Surgery Other HEENT Surgeries/Procedures: wisdom teeth romoved Respiratory Surgical History: Reports: None GI Surgical History: Reports: Cholecystectomy Neurological Surgical History: Reports: None Social & Family History - Family History Family Medical History: No Pertinent Family History Endocrine/Metabolic: Reports: Diabetes, type II Other Endocrine/Metabolic Family History: father - Tobacco Use Tobacco Use Status *Q: Current Every Day Tobacco User Years of Tobacco use: 15 Packs/Tins Daily: 0.5 - Caffeine Use Caffeine Use: Reports: None Other Caffeine Use: 4 per day - Recreational Drug Use Recreational Drug Use: No ED ROS GENERAL - Review of Systems Review Of Systems: See Below Constitutional: Reports: Fever, Chills HEENT: Reports: No Symptoms Respiratory: Reports: Shortness of Breath, Cough, Sputum Cardiovascular: Reports: Dyspnea on Exertion GI/Abdominal: Reports: No Symptoms ED EXAM, GENERAL - Physical Exam Exam: See Below Exam Limited By: No Limitations General Appearance: Alert, WD/WN, No Apparent Distress Ears: Normal External Exam, Normal Canal, Hearing Grossly Normal, Normal TMs Nose: Normal Inspection, Normal Mucosa, No Blood Throat/Mouth: Normal Inspection, Normal Lips, Normal Teeth, Normal Gums, Normal Oropharynx, Normal Voice, No Airway Compromise Neck: Normal Inspection, Supple, Non-Tender, Full Range of Motion Respiratory/Chest: No Respiratory Distress, Lungs Clear, Normal Breath Sounds, No Accessory Muscle Use, Chest Non-Tender Cardiovascular: Regular Rate, Rhythm, No Murmur Course - Vital Signs Last Recorded V/S: Last Vital Signs Temp 97.9 F 04/01/21 09:53 Pulse 103 H 04/01/21 09:53 Resp 20 04/01/21 09:53 BP 141/84 H 04/01/21 09:53 Pulse Ox 91 L 04/01/21 09:53 - Orders/Labs/Meds Labs: Laboratory Tests 04/01/21 Range/Units 10:00 SARS CoV-2 RNA Rapid HAYLIE Negative Departure - Departure Time of Disposition: 11:02 Disposition: Home, Self-Care 01 Condition: Fair Clinical Impression: Bronchitis - Discharge Information Instructions: Acute Bronchitis, Adult Referrals: PCP,None [Primary Care Provider] - Additional Instructions: Take full course of antibiotics, please followup with your primary care provider in 3-5 days if not better, please call return to the emergency department with worsening of symptoms. Sepsis Event Note (ED) - Evaluation Sepsis Screening Result: No Definite Risk - Focused Exam Vital Signs: Vital Signs Temp Pulse Resp BP Pulse Ox 04/01/21 09:53 97.9 F 103 H 20 141/84 H 91 L - Assessment/Plan Plan: Assessment Acuity = acute Site and laterality = bronchitis complicated the patient with tobacco history Etiology = probable bacterial cause Manifestations = none Location of injury = Home Lab values = Covid 19 - Plan Like to treat empirically azithromycin 5-day course follow-up primary care 3 to 5 days if not better This note was dictated using [employer] voice recognition software please call with any questions on syntax or grammar.
== END 2021-04-01 11:08 | disposition home or self-care (01) ==
LOC: JP.ED 09:24
DX: J40 Bronchitis, not specified as acute or chronic (principal); Z72.0 Tobacco use; Z20.822 Contact with and (suspected) exposure to COVID-19
CPT/HCPCS: 99283; U0002